=== PATIENT | male | born 1960 | race Caucasian/White ===

== ENCOUNTER 2023-12-21 16:41 | Emergency (ER) | payer MEDICAID, SELFPAY ==
[2023-12-21 16:46] VITALS: BP 139/103; PULSE 83; RESP 20; TEMP 35.6; O2SAT 98; BMI 29.7
--- NOTE | 2023-12-21 16:47 | ED_ITS ---
HPI - General Adult General Chief complaint: Recheck/Abnormal Lab/Rx Stated complaint: Medication check Time Seen by Provider: 12/21/23 17:12 Source: patient and RN notes reviewed Mode of arrival: ambulatory Limitations: no limitations History of Present Illness HPI narrative: This is a [id number]-male, with a hx of CKD stage 3, liver disease, diabetes, HTN, HLD, presenting to the ER with a complaint of medication refill. Patient was incarcerated for 18 years and was released yesterday. He has been on morphine 20 mg twice a day, he states that he was previously being tapered off of this medication however was not discharged with any morphine home. He states that he was told to follow-up with the [facility] however was referred here to be assessed and treated for medication refill. He feels as though he is going into withdrawal, states diffuse body aches. Denies any fevers, chills, chest pain, shortness of breath, abdominal pain, nausea, vomiting or diarrhea. Denies any other complaints or concerns at this time. MD complaint: Medication refill Onset (ago): day(s) Radiation: non-radiation Relieving factors: none Exacerbating factors: none Associated symptoms: denies other symptoms Treatments prior to arrival: none Related Data Previous Rx's Medication Instructions Recorded insulin syringe-needle U-100 1 mL #20 ea 12/21/23 28 gauge x 1/2 (BD Insulin Syringe) morphine 10 mg/5 mL oral solution 20 mg (10 mL) PO BID 7 days #140 mL 12/21/23 Allergies Allergy/AdvReac Type Severity Reaction Status Date / Time acetaminophen [From Tylenol] AdvReac Gastrointestinal Verified 12/21/23 16:53 Upset Review of Systems Review of Systems: Yes all other systems are reviewed and are negative Constitutional: Constitutional: Reports as per [facility] Past Medical History Attestation statement: The following information was validated with the patient. Social History Social History Advance Directives: No Advance Directives Information Provided: No Physical Exam ED Vital Signs: Vital Signs - 24 hr 12/21/23 16:46 12/21/23 17:44 Temperature 96.1 F L 96.1 F L Pulse Rate 83 83 Respiratory Rate 20 20 Blood Pressure 139/103 H 139/103 H Pulse Oximetry 98 98 Oxygen Delivery Method Room Air Room Air BMI result Body Mass Index 29.7 Const General: cooperative, comfortable and no acute distress Orientation/consciousness: patient oriented x3 Limitations: no limitations HENMT Head: Yes normal to inspection, Yes normocephalic and Yes atraumatic Ears: hearing grossly normal bilaterally General nose exam: Normal external nose present Face and sinus: Yes normal facial exam Mouth: Normal oral and palatal mucosa present, oropharynx normal and moist mucous membranes Throat: Yes posterior oropharynx normal Eyes General: appearance normal, both eyes and all related structures Eyelids: Yes eyelids normal Conjunctivae: conjunctivae normal Sclerae: sclerae normal Pupils: Equal, round and reactive pupils present EOM: EOMs intact bilaterally Neck Neck: Yes normal visual inspection, Yes full ROM and Yes no lymphadenopathy Lymphatic: no lymphadenopathy noted Chest Chest palpation & inspection: normal inspection of the chest Resp Effort & Inspection: normal respiratory effort and able to speak in complete sentences Cardio Rate: regular rate Rhythm: regular rhythm Heart sounds: S1 normal heart sound present and S2 normal heart sound present GI Inspection: Yes normal to inspection Skin General skin exam: no rashes or lesions noted Trauma: no lacerations or abrasions Wounds: no wounds Neuro General: patient oriented x3 and moves all extremities Cranial nerves: Yes Equal, round and reactive pupils present Extrem General: Yes normal to inspection Right upper extremity: normal to inspection Left upper extremity: normal to inspection Right lower extremity: normal to inspection Left lower extremity: normal to inspection Medical Decision Making Medical Decision Making MDM Narrative: This is a 63-year-old male presenting to the emergency department her medication refill. He was previously incarcerated and is requesting a medication refill morphine. He is presenting with official documentation revealing that he was previously on morphine 20 mg by mouth twice a day. He has no follow up, pain management, kidney specialist or PCP. I discussed with patient that we cannot refill these medications through the ER but given he is chronically on this, will fill one time week worth of medication. He was give referral to pain management, endrocrinology, primary care, and addiction serviecs. He declines wanting to speak to the addition medical team. He states that he was previously on methadone but sinec switching to morphine this has worked well for him. He states that he has been on it for many years. Pt advised that he cannot have this medication refilled from the ER in the future. He understands and agrees with plan. Stable for d/c. Differential Diagnosis Differential Diagnoses: The differential diagnosis associated with the presentation includes opioid dependency, med refill, anxiety, depression Admission/Observation Consideration of admission/observation: Escalation of care including admission/observation considered Chronic Conditions Patient?s care impacted by: Diabetes Discharge Plan Discharge Clinical Impression: Encounter for medication refill Patient Disposition: Home, Self-Care Instructions: Medicine Refill (ED) Additional Instructions: You were sent here to the emergency room for a medication refill. I am able to refill your medication only for 1 week. You must follow-up with pain management, call tomorrow morning to make an appointment. We can not refill this medication from the emergency room. Follow-up with [facility] for primary care, I am also giving your referral to addiction medicine Services. If any new or worsening symptoms occur including but not limited to chest pain, shortness of breath, please return for re-evaluation. Prescriptions: New morphine 10 mg/5 mL solution 20 mg PO BID 7 Days Qty: 140 0RF Rx Instructions: Partial Fill upon patient request. (DME) insulin syringe-needle U-100 [BD Insulin Syringe] 1 mL 28 gauge x 1/2 syringe See Rx Instructions .Route Qty: 20 0RF Rx Instructions: As directed Referrals: [facility] [Provider Group] [facility] [place]Provider Group] [facility] [Provider Group] [facility] [Physician] - Radha Ambriz CNP [Nurse Practitioner] - Interventions: ED Discharge Assessment Last Done: 12/21/23 17:44 Discharge Date/Time: 12/21/23 17:45
[2023-12-21 17:44] VITALS: BP 139/103; PULSE 83; RESP 20; TEMP 35.6; O2SAT 98
== END 2023-12-21 17:45 | disposition home or self-care (01) ==
PROVIDERS: Emergency Provider Emergency Medicine; PCP Internal Medicine
DX: M79.10 Myalgia, unspecified site (principal); E11.9 Type 2 diabetes mellitus without complications; Z76.0 Encounter for issue of repeat prescription
CPT/HCPCS: 99282

== ENCOUNTER 2023-12-21 18:26 | Emergency (ER) | payer MEDICAID, SELFPAY ==
[2023-12-21 18:56] VITALS: BP 139/83; PULSE 71; RESP 18; TEMP 36.8; O2SAT 98; BMI 34.9
--- NOTE | 2023-12-21 19:27 | ED.GENADULT ---
HPI - General Adult General Chief complaint: General Medical Stated complaint: med check/came back Time Seen by Provider: 12/21/23 19:27 Source: patient and RN notes reviewed Mode of arrival: ambulatory Limitations: no limitations History of Present Illness HPI narrative: 63 y/o M, hx of CKD stage 3, diabetes, and chronic pain on daily morphine (rx'd through prison), presenting to the ER for medication dosage. Pt was seen earlier as he was just d/c from prison without his daily medications. He presents with his paperwork from prison and has been on morphine 20mg BID. 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 This was filled earlier with a one time rx, but he states that when he went to the pharmacy they are unable to fill it as his insurance is not active until tomorrow. He states that his last dose was yesterday and he states that he has severe pain and would like to have his evening dose here if possible. No CP or SOB. No other complaints or concerns at this time. MD complaint: Med dosing Onset (ago): day(s) Relieving factors: none Exacerbating factors: none Associated symptoms: denies other symptoms Treatments prior to arrival: none Related Data Previous Rx's Medication Instructions Recorded insulin syringe-needle U-100 1 mL #20 ea 12/21/23 28 gauge x 1/2 (BD Insulin Syringe) morphine 10 mg/5 mL oral solution 20 mg (10 mL) PO BID 7 days #140 mL 12/21/23 Allergies Allergy/AdvReac Type Severity Reaction Status Date / Time acetaminophen [From Tylenol] AdvReac Gastrointestinal Verified 12/21/23 16:53 Upset Review of Systems Review of Systems: Yes all other systems are reviewed and are negative [facility] Past Medical History Attestation statement: The following information was validated with the patient. Social History Social History Advance Directives: No Advance Directives Information Provided: No Physical Exam ED Vital Signs: Vital Signs - 24 hr 12/21/23 18:56 12/21/23 20:06 Temperature 98.2 F 0 F L Pulse Rate 71 0 L Respiratory Rate 18 0 L Blood Pressure 139/83 00/00 L Pulse Oximetry 98 Oxygen Delivery Method Room Air BMI result Body Mass Index 34.9 Const Other: General: Awake, alert, and oriented X3. No acute distress. HEENT: Normal inspection CVS: Normal heart rate and rhythm. Pulses normal. Respiratory: No respiratory distress Skin: Warm, dry, no rashes noted to exposed skin. Normal skin color. Normal skin turgor. Extremities: Normal to inspection Neuro: Oriented X 3. No motor deficit. No sensory deficit. Medications Administered Discontinued Medications Generic Name Dose Route Start Last Admin Trade Name Shar PRN Reason Stop Dose Admin Morphine Sulfate 20 mg 12/21/23 19:31 12/21/23 19:52 Morphine Sulfate Oral Kim 10 Mg/5 Ml Solution PO 12/21/23 19:32 20 mg ONCE ONE Administration Medical Decision Making Medical Decision Making MDM Narrative: 63 y/o M, hx of dm, CKD stage 3, and chronic pain, presenting to the ER for medication dosing. He is well appearing and alert, and presents with official documetation that he is on morphine. He was given his morphine 20mg dose and advised that we cannot dose him with mophine or refill this medication and he must follow up with pain management. He understands and agrees with plan. Stable for d/c. Differential Diagnosis Differential Diagnoses: The differential diagnosis associated with the presentation includes med refill, opioid dependency, depression, anxiety Lab Data [facility] Lab Attestation statement: I reviewed the patient's lab results. Labs: Lab Results 12/21/23 Range/Units 19:40 POC Glucose 108 (60-115) mg/dL Discharge Plan Discharge Clinical Impression: Encounter for medication refill Patient Disposition: Home, Self-Care Instructions: Medicine Refill (ED) Additional Instructions: Your dose today with morphine as you could not pick this up at the pharmacy. Please use all discharge instructions provided to you earlier today. You must follow-up with pain management, call tomorrow morning to make an appointment. We can not refill this medication from the emergency room. Follow-up with [facility] for primary care, I am also giving your referral to addiction medicine Services. If any new or worsening symptoms occur including but not limited to chest pain, shortness of breath, please return for re-evaluation. Prescriptions: Prescriptions: No Action morphine 10 mg/5 mL solution 20 mg PO BID 7 Days Qty: 140 0RF Rx Instructions: Partial Fill upon patient request. (DME) insulin syringe-needle U-100 [BD Insulin Syringe] 1 mL 28 gauge x 1/2 syringe See Rx Instructions .Route Qty: 20 0RF Rx Instructions: As directed Referrals: [facility] [Provider Group] [facility] [Provider Group] [facility] [Provider Group] [facility] [Physician] - Radha Ambriz CNP [Nurse Practitioner] - Interventions: ED Discharge Assessment Last Done: 12/21/23 20:06 Discharge Date/Time: 12/21/23 20:06
[2023-12-21 19:43] LABS: Glucose, Whole Blood 108 mg/dL (60-115)
[2023-12-21] MEDS: Morphine Sulfate Oral Sol 10 MG/5 ML SOLUTION 20 MG PO (19:52)
[2023-12-21 20:06] VITALS: BP 00/00; PULSE 0; RESP 0; TEMP -17.7; TEMP 0
== END 2023-12-21 20:06 | disposition home or self-care (01) ==
PROVIDERS: Emergency Provider Internal Medicine; PCP Internal Medicine
DX: E11.22 Type 2 diabetes mellitus with diabetic chronic kidney disease (principal); G89.29 Other chronic pain; N18.30 Chronic kidney disease, stage 3 unspecified; Z76.0 Encounter for issue of repeat prescription; Z79.4 Long term (current) use of insulin
CPT/HCPCS: 82947; 99283

== ENCOUNTER 2023-12-28 15:51 | Emergency (ER) | payer MEDICAID, SELFPAY ==
[2023-12-28 16:24] VITALS: BP 146/73; PULSE 88; RESP 16; TEMP 36.6; O2SAT 100; BMI 34.3
--- NOTE | 2023-12-28 16:33 | ED_ITS ---
HPI - General Adult General Chief complaint: General Medical Stated complaint: medication refill Time Seen by Provider: 12/28/23 16:30 Source: patient Mode of arrival: ambulatory Limitations: no limitations History of Present Illness HPI narrative: 63 yold male with pmh of DM and Chronic pain who is on morphine and needs a morphine med refill. Patient released from long term and has no PCP. patient needs his morphine meds for chornic pain. patient has follow up with his first PCP on January 18. Patient finished his recent morphine prescription couple of days ago. Related Data Previous Rx's Medication Instructions Recorded insulin syringe-needle U-100 1 mL #20 ea 12/21/23 28 gauge x 1/2 (BD Insulin Syringe) morphine 10 mg/5 mL oral solution 20 mg (10 mL) PO BID 7 days #140 mL 12/21/23 morphine 15 mg immediate release 15 mg PO BID PRN pain 5 days #10 12/28/23 tablet tabs Allergies Allergy/AdvReac Type Severity Reaction Status Date / Time acetaminophen [From Tylenol] AdvReac Gastrointestinal Verified 12/21/23 16:53 Upset Review of Systems 2 Review of Systems: medication refil Yes all other systems are reviewed and are negative [facility] Social History Social History Advance Directives: No Advance Directives Information Provided: No Physical Exam ED Vital Signs: Vital Signs - 24 hr 12/28/23 16:24 Temperature 97.9 F Pulse Rate 88 Respiratory Rate 16 Blood Pressure 146/73 H Pulse Oximetry 100 Oxygen Delivery Method Room Air BMI result Body Mass Index 34.3 Const General: cooperative, healthy appearing, comfortable, no acute distress, well developed, alert and awake Orientation/consciousness: oriented to person, oriented to place, oriented to time and patient oriented x3 HENMT Head: Yes normal to inspection, Yes No palpable skull fracture present, Yes normocephalic and Yes atraumatic Eyes General: appearance normal, both eyes and all related structures Neck Neck: Yes normal visual inspection, Yes full ROM, Yes no lymphadenopathy, Yes no meningeal signs, Yes trachea midline, Yes supple, No anterior neck swelling and No tender Chest Chest palpation & inspection: normal inspection of the chest and normal palpation of entire chest wall Resp Effort & Inspection: normal respiratory effort and able to speak in complete sentences Auscultation: clear to auscultation bilaterally Cardio Jugular venous distension: no JVD Heart sounds: S1 normal heart sound present and S2 normal heart sound present GI Inspection: Yes normal to inspection Palpation (GI): Soft to palpation, not firm, nontender, no guarding and not rigid General: Yes no CVA tenderness Back/Spine/Pelvis Back: no CVA tenderness and No back tenderness Skin General skin exam: no rashes or lesions noted, elasticity normal and turgor normal Neuro General: oriented to person, oriented to place, oriented to time, patient oriented x3, gait normal, tone normal, moves all extremities, Normal light touch and pain sensation, no meningeal signs, no focal motor deficits and CN's II-XI intact bilaterally Extrem General: Yes normal to inspection, Yes full ROM and Yes capillary refill normal Psych Appearance: grossly normal, well kempt and not disheveled Course Course Course Narrative: RME: 63-year-old male presents ED for medication refill of morphine. Patient is on morphine for chronic pain. Patient has next appointment January 18 and is on morphine ran out and does not want to go start using street drugs. Patient informed he will be given short course of morphine and then call clinic for earlier appointment. Patient informed to call pain managment. for managment of pain and morphine. Medical Decision Making Medical Decision Making MDM Narrative: 63 yold male with DM and chronic pain requesting morphine meds refill. Patient needs meds until january 18. Patient informed to follow up with PCP and call them for earlier appointment. Also informed to follow up [facility] pain clinic. Patient explained worrisome signs and informed to return to the ED if he has them. Patient given short course of morphine. Differential Diagnosis Differential Diagnoses: The differential diagnosis associated with the presentation includes (medication refill) Admission/Observation Consideration of admission/observation: Escalation of care including ad mission/observation considered Independent Historian Clinical information obtained from an independent historian. History obtained from or confirmed by: Other (patient. ) External Record Review External record reviewed: Other (prior visits) Prescription Management I considered prescription management with: Pain Medication Discharge Plan Discharge Clinical Impression: Encounter for medication refill Patient Disposition: Home, Self-Care Instructions: Medicine Refill (ED) Additional Instructions: Recommend follow-up with primary care provider. Call clinic for earlier appointment. Also recommend calling pain management. Return to the ED for any physical complaints, depression, suicidal/homicidal ideation, or any other concerning symptoms. Prescriptions: New morphine 15 mg tablet 15 mg PO BID PRN (Reason: pain) 5 Days Qty: 10 0RF Rx Instructions: Partial Fill upon patient request. No Action morphine 10 mg/5 mL solution 20 mg PO BID 7 Days Qty: 140 0RF Rx Instructions: Partial Fill upon patient request. (DME) insulin syringe-needle U-100 [BD Insulin Syringe] 1 mL 28 gauge x 1/2 syringe See Rx Instructions .Route Qty: 20 0RF Rx Instructions: As directed Discharge Date/Time: 12/28/23 16:52 Print Language: Pashto
--- NOTE | 2023-12-28 16:50 | PC.NURSE ---
pt was discharged from triage provider
== END 2023-12-28 16:52 | disposition home or self-care (01) ==
PROVIDERS: Emergency Provider Emergency Medicine Emergency Medical Services; PCP Internal Medicine
DX: Z76.0 Encounter for issue of repeat prescription (principal)
CPT/HCPCS: 99281; 99282

== ENCOUNTER 2024-01-01 02:22 | Emergency (ER) | payer OTHER, SELFPAY ==
--- NOTE | ~2024-01-01 | XR_ITS ---
EXAMINATION: XR ANKLE, RIGHT CLINICAL INFORMATION: Pain COMPARISON: None available. TECHNIQUE: AP, lateral, and mortise views of the right ankle. FINDINGS: Osseous alignment is anatomic. No acute fracture is seen. Mild degenerative changes are noted in the midfoot. There is soft tissue swelling at the ankle which is most prominent laterally. Vascular calcifications are noted. XR/XR ankle RT min 3V IMPRESSION: No acute osseous findings. Soft tissue swelling at the ankle.
[2024-01-01 02:27] VITALS: BP 165/83; PULSE 84; RESP 16; TEMP 37.1; O2SAT 84; BMI 34.5
[2024-01-01 03:44] VITALS: BP 139/79; PULSE 77; RESP 14; O2SAT 93
--- NOTE | 2024-01-01 03:48 | PC.NURSE ---
Pt aox4 resting at the bedside. VSS. No apparent distress noted. Reports generalized body pain and chronic pain, 07/13. Reports taking pain medication for several years and running out of meds. Pt also reports twisting the right ankle on the sidewalk. Right ankle swelling noted. X-ray order placed. Pending physician eval.
--- NOTE | 2024-01-01 04:43 | ED.GENADULT ---
HPI - General Adult General Chief complaint: General Medical Stated complaint: RX refill Time Seen by Provider: 01/01/24 03:58 Source: patient Mode of arrival: ambulatory Limitations: no limitations History of Present Illness HPI narrative: Patient comes to the emergency room requesting refill for morphine 50 mg b.i.d.. Patient was recently discharged from long-term and he was not given his medications back. Patient has an appointment pending on January [address] Womack. Patient has been coming every 5 days to the emergency room for a refill. Related Data Previous Rx's Medication Instructions Recorded morphine 15 mg tablet,extended 15 mg PO Q12H #10 tabs 01/01/24 release Allergies Allergy/AdvReac Type Severity Reaction Status Date / Time acetaminophen [From Tylenol] AdvReac Nausea Verified 01/01/24 02:38 Review of Systems Review of Systems: Constitutional : No Weight loss, No Fever, No Chills, No Night Sweats, No Fatigue, No Malaise ENT/Mouth : No Hearing loss, No Ear Pain, No Nasal Congestion, No Sinus Pain, No Hoarseness, No sore throat, No Rhinorrhea, No Swallowing Difficulty Eyes: No Eye Pain, No Swelling, No Redness, No Foreign Body, No Discharge, No Vision Changes Cardiovascular : No Chest Pain, No SOB, No Dyspnea on Exertion, No Orthopnea, No Edema, No Palpitations Respiratory : No Cough, No Sputum, No Wheezing, No Smoke Exposure, No Dyspnea Gastrointestinal : No Nausea, No Vomiting, No Diarrhea, No Constipation, No abdominal Pain, No Hematochezia, No Melena Genitourinary : no irregular bleeding, No Dysuria, No Urinary Frequency, No Hematuria, No Urinary Incontinence, No Urgency, No Flank Pain, No Urinary Flow Changes, No Hesitancy Musculoskeletal : Complaining of right ankle pain, No Myalgias, No Joint Swelling Skin : No Skin Lesions, No rash Neuro : No Weakness, No Numbness, No Paresthesias, No Loss of Consciousness, No Dizziness, No Headache Psych : No Anxiety/Panic, No Depression, No SI/HI/AH/VH, No Social Issues, Heme/Lymph: No Bruising, No Bleeding,No Lymphadenopathy Endocrine : No Polyuria, No Polydipsia, No Temperature Intolerance PMF Past Medical History Medical History (Updated 01/01/24 @ 04:49 by Paulina Girard MD) Chronic pain Social History Social History Smoked in Last 30 Days: No Use of substances other than those prescribed or required for medical reasons: No Advance Directives: No Advance Directives Information Provided: Yes Physical Exam ED Vital Signs: Vital Signs - 24 hr 01/01/24 02:27 01/01/24 03:44 Temperature 98.7 F Pulse Rate 84 77 Respiratory Rate 16 14 Blood Pressure 165/83 H 139/79 Pulse Oximetry 84 L 93 Oxygen Delivery Method Room Air Room Air BMI result Body Mass Index 34.5 Const Other: Appearance: Alert. Oriented X3. No acute distress. Eyes: Pupils equal, round and reactive to light. ENT: Pharynx normal. Neck: Normal inspection. Neck supple. No lymph nodes noted. No crepitus CVS: Normal heart rate and rhythm. Pulses normal. Normal S1 and S2 Respiratory: No respiratory distress. Breath sounds normal. No Wheezing. No rales Abdomen: Soft and nontender. No rigidity. No distention. Skin: Skin warm and dry. Normal skin color. Normal skin turgor. Extremities: No lower extremity edema. No Lacerations. No Rash Neuro: Oriented X 3. No motor deficit. No sensory deficit. Moving all extremities. No slurred speech. CN 2 through 12 grossly intact Psych: calm, cooperative, normal affect Medical Decision Making Medical Decision Making MDM Narrative: -a check patient's Mass pad. So far, seems that patient is using his medication appropriately. -of note, patient was registered under the correct name but it was misspelled today by registration. The patient's charts will be merged later today -reviewing patient's chart, seems that patient did present the 1st time here to the ED in triage with documentation from the long-term stating that he was in fact taking morphine 15 mg b.i.d. -I will go ahead and give a small prescription to the patient. Radiology Impression Discussion of test interpretation with radiology: I have reviewed the radiologist's reading. Radiologist Impression: Osseous alignment is anatomic. No acute fracture is seen. Mild degenerative changes are noted in the midfoot. There is soft tissue swelling at the ankle which is most prominent laterally. Vascular calcifications are noted. XR/XR ankle RT min 3V IMPRESSION: No acute osseous findings. Soft tissue swelling at the ankle. Discharge Plan Discharge Clinical Impression: Prescription refill Patient Disposition: Home, Self-Care Instructions: Medicine Refill (ED) Additional Instructions: Please follow-up with your primary care physician tomorrow. If you have any worsening or new symptoms, please return to the emergency room or call 911 Prescriptions: New morphine 15 mg tablet extended release 15 mg PO Q12H Qty: 10 0RF Rx Instructions: Partial Fill upon patient request.
--- NOTE | 2024-01-01 04:48 | PC.NURSE ---
this rn assumed care of pt, pt resting in stretcher, no acute distress noted. plan of care continues.
[2024-01-01 05:36] VITALS: BP 150/84; PULSE 73; RESP 16; TEMP 36.7; O2SAT 96
== END 2024-01-01 05:37 | disposition home or self-care (01) ==
PROVIDERS: Emergency Provider Emergency Medicine; PCP Internal Medicine
DX: Z76.0 Encounter for issue of repeat prescription (principal); M25.471 Effusion, right ankle
CPT/HCPCS: 73610; 99283; 99284

== ENCOUNTER 2024-01-04 16:14 | Emergency (ER) | payer OTHER, SELFPAY ==
[2024-01-04 17:12] VITALS: BP 153/80; PULSE 76; RESP 18; TEMP 36.6; O2SAT 96; BMI 35.3
--- NOTE | 2024-01-04 17:15 | ED_ITS ---
HPI - General Adult General Chief complaint: General Medical Stated complaint: Med check Time Seen by Provider: 01/04/24 17:15 Source: patient Mode of arrival: ambulatory Limitations: no limitations History of Present Illness HPI narrative: 63 y/o male with history of DM2, chronic pain on chronic opiates for the last several years who presents to the ER for Morphine refill. He was incarcerated for the last 18 years and just got out 12/20/23. He was discharged with diabetes meds for 1 month but he was not given any morphine. he has been coming here for refills. No other drug use. He has an appointment with a provider on 01/18. MD complaint: morphine refill Related Data Previous Rx's Medication Instructions Recorded insulin syringe-needle U-100 1 mL #20 ea 12/21/23 28 gauge x 1/2 (BD Insulin Syringe) morphine 10 mg/5 mL oral solution 20 mg (10 mL) PO BID 7 days #140 mL 12/21/23 morphine 15 mg immediate release 15 mg PO BID PRN pain 5 days #10 12/28/23 tablet tabs morphine 15 mg tablet,extended 15 mg PO Q12H #10 tabs 01/01/24 release morphine 15 mg tablet,extended 15 mg PO Q12H #14 tabs 01/04/24 release Allergies Allergy/AdvReac Type Severity Reaction Status Date / Time acetaminophen [From Tylenol] AdvReac Gastrointestinal Verified 01/04/24 17:15 Upset Review of Systems Review of Systems: Yes all other systems are reviewed and are negative [facility] Past Medical History Medical History (Updated 01/04/24 @ 17:16 by GEORGE Diaz) Chronic pain Social History Social History (System 01/03/24 @ 11:15 by Laverne Banks) Advance Directives: No Advance Directives Information Provided: No Physical Exam ED Vital Signs: Vital Signs - 24 hr 01/04/24 17:12 01/04/24 17:27 Temperature 97.9 F 97.9 F Pulse Rate 76 76 Respiratory Rate 18 18 Blood Pressure 153/80 H 153/80 H Pulse Oximetry 96 96 Oxygen Delivery Method Room Air Room Air BMI result Body Mass Index 35.3 Appearance: Alert. Oriented X3. No acute distress. HEENT: normal inspection CVS: Normal heart rate and rhythm. Pulses normal. Respiratory: No respiratory distress. Skin: Skin warm and dry. Normal skin color. Normal skin turgor. No rashes. Extremities: Normal inspection x4 Neuro: Oriented X 3. Grossly normal, nonfocal, steady gait Medical Decision Making Medical Decision Making MDM Narrative: 63 yo male with history of chronic pain on chronic morphine presents to the ER for morphine refill. has been seen here several times for a few days worth of morphine He has outpatient follow-up but not for another couple of weeks. [employer] reviewed. low suspicion for abuse as this is a chronic medication for him will send 1 week worth of morphine for now stable for discharge Differential Diagnosis Differential Diagnoses: The differential diagnosis associated with the presentation includes opioid use disorder, chronic pain syndrome, polysubstance abuse External Record Review External record reviewed: Outpatient record Prescription Management I considered prescription management with: Pain Medication Chronic Conditions Patient?s care impacted by: Other (Chronic pain syndrome) Social Determinants Patient?s care significantly limited by Social Determinants of Health including: Problems related to primary support group and Other Social Determinant of Health Critical Care Time Critical Care Time Critical Care Time: No Discharge Plan Discharge Clinical Impression: Chronic pain syndrome Patient Disposition: Home, Self-Care Instructions: Chronic Pain (ED) Additional Instructions: Take the prescribed morphine as directed. Follow-up with your doctor as scheduled on the If you develop new or worsening symptoms call 911 or come back to the ER for further evaluation. Prescriptions: New morphine 15 mg tablet extended release 15 mg PO Q12H Qty: 14 0RF Rx Instructions: Partial Fill upon patient request. No Action morphine 15 mg tablet 15 mg PO BID PRN (Reason: pain) 5 Days Qty: 10 0RF Rx Instructions: Partial Fill upon patient request. morphine 15 mg tablet extended release 15 mg PO Q12H Qty: 10 0RF Rx Instructions: Partial Fill upon patient request. morphine 10 mg/5 mL solution 20 mg PO BID 7 Days Qty: 140 0RF Rx Instructions: Partial Fill upon patient request. (DME) insulin syringe-needle U-100 [BD Insulin Syringe] 1 mL 28 gauge x 1/2 syringe See Rx Instructions .Route Qty: 20 0RF Rx Instructions: As directed Interventions: ED Discharge Assessment Last Done: 01/04/24 17:27 Discharge Date/Time: 01/04/24 17:28
[2024-01-04 17:27] VITALS: BP 153/80; PULSE 76; RESP 18; TEMP 36.6; O2SAT 96
== END 2024-01-04 17:28 | disposition home or self-care (01) ==
PROVIDERS: Emergency Provider Emergency Medicine Emergency Medical Services; PCP Internal Medicine
DX: Z76.0 Encounter for issue of repeat prescription (principal); G89.29 Other chronic pain; E11.9 Type 2 diabetes mellitus without complications; Z79.4 Long term (current) use of insulin
CPT/HCPCS: 99282; 99283

== ENCOUNTER 2024-01-08 10:49 | Emergency (ER) | payer OTHER, SELFPAY ==
[2024-01-08 10:54] VITALS: BP 126/73; PULSE 79; RESP 20; TEMP 36.2; O2SAT 98; BMI 34.8
--- NOTE | 2024-01-08 11:55 | ED.GENADULT ---
HPI - General Adult General Chief complaint: General Medical Stated complaint: Med refill Time Seen by Provider: 01/08/24 12:00 Source: patient Mode of arrival: ambulatory Limitations: no limitations History of Present Illness HPI narrative: 63 y/o male with history of DM2, chronic pain on chronic opiates for the last several years who presents to the ER for Trulicity and Torsemide refills. Has been on the same doses for a long time. Has PCP appointment 01/18. Has been seen here several times for Morphine refills until he can get to his PCP. No chest pain, SOB, LE swelling. Glucose 130s at home. complaint: med refill Relieving factors: none Exacerbating factors: none Associated symptoms: denies other symptoms Treatments prior to arrival: none Related Data Previous Rx's ?Medication ?Instructions ?Recorded insulin syringe-needle U-100 1 mL #20 ea 12/21/23 28 gauge x 1/2 (BD Insulin Syringe) morphine 10 mg/5 mL oral solution 20 mg (10 mL) PO BID 7 days #140 mL 12/21/23 morphine 15 mg immediate release 15 mg PO BID PRN pain 5 days #10 12/28/23 tablet tabs morphine 15 mg tablet,extended 15 mg PO Q12H #10 tabs 01/01/24 release morphine 15 mg tablet,extended 15 mg PO Q12H #14 tabs 01/04/24 release dulaglutide 0.75 mg/0.5 mL 0.75 mg (0.5 mL) subcut QWEEK #1 mL 01/08/24 subcutaneous pen injector (Trulicity) torsemide 20 mg tablet 40 mg (2 x 20 mg) PO DAILY #30 tabs 01/08/24 Allergies Allergy/AdvReac Type Severity Reaction Status Date / Time acetaminophen [From Tylenol] AdvReac Gastrointestinal Verified 01/08/24 10:56 Upset Review of Systems Review of Systems: Yes all other systems are reviewed and are negative [facility] Past Medical History Medical History (Updated 01/08/24 @ 11:58 by GEORGE Diaz) Chronic pain Social History Social History (System 01/03/24 @ 11:15 by Laverne Banks) Advance Directives: No Advance Directives Information Provided: No Physical Exam ED Vital Signs: Vital Signs - 24 hr 01/08/24 10:54 Temperature 97.1 F Pulse Rate 79 Respiratory Rate 20 Blood Pressure 126/73 Pulse Oximetry 98 Oxygen Delivery Method Room Air BMI result Body Mass Index 34.8 Appearance: Alert. Oriented X3. No acute distress. HEENT: normal inspection CVS: Normal heart rate and rhythm. Pulses normal. Respiratory: No respiratory distress. Skin: Skin warm and dry. Normal skin color. Normal skin turgor. No rashes. Extremities: normal x4, no joint swelling Neuro: Oriented X 3. Nonfocal Course Course Course Narrative: 63 year old male with history of diabetes requesting refill torsemide and trulicity. Medical Decision Making Medical Decision Making MDM Narrative: 63 y/o male with history of DM2, chronic pain on chronic opiates for the last several years who presents to the ER for med refill. VSS. Patient counseled on med refills and need for outpatient follow up Differential Diagnosis Differential Diagnoses: The differential diagnosis associated with the presentation includes med refill, med seeking, med noncompliance, no evidence of acute CHF exacerbation or volume overload External Record Review External record reviewed: Outpatient record and Prior outpatient labs Prescription Management I considered prescription management with: Pain Medication Chronic Conditions Patient?s care impacted by: Diabetes Critical Care Time Critical Care Time Critical Care Time: No Discharge Plan Discharge Clinical Impression: Diabetes Patient Disposition: Home, Self-Care Instructions: Type 2 Diabetes in the Older Adult (ED) Additional Instructions: take your medications as prescribed follow up with PCP as scheduled on 01/18 Prescriptions: New torsemide 20 mg tablet 40 mg PO DAILY Qty: 30 0RF Trulicity 0.75 mg/0.5 mL pen injector 0.75 mg subcut QWEEK Qty: 1 0RF No Action morphine 15 mg tablet 15 mg PO BID PRN (Reason: pain) 5 Days Qty: 10 0RF Rx Instructions: Partial Fill upon patient request. morphine 15 mg tablet extended release 15 mg PO Q12H Qty: 10 0RF Rx Instructions: Partial Fill upon patient request. morphine 10 mg/5 mL solution 20 mg PO BID 7 Days Qty: 140 0RF Rx Instructions: Partial Fill upon patient request. (DME) insulin syringe-needle U-100 [BD Insulin Syringe] 1 mL 28 gauge x 1/2 syringe See Rx Instructions .Route Qty: 20 0RF Rx Instructions: As directed morphine 15 mg tablet extended release 15 mg PO Q12H Qty: 14 0RF Rx Instructions: Partial Fill upon patient request. Print Language: Belarusian
[2024-01-08 12:13] VITALS: BP 130/73; PULSE 78; RESP 20; TEMP 36.3; O2SAT 95
== END 2024-01-08 12:14 | disposition home or self-care (01) ==
LOC: HO.ED 12:00
PROVIDERS: Emergency Provider Student in an Organized Health Care Education/Training Program
DX: Z76.0 Encounter for issue of repeat prescription (principal); E11.9 Type 2 diabetes mellitus without complications; Z79.899 Other long term (current) drug therapy
CPT/HCPCS: 99282

== ENCOUNTER 2024-01-10 15:55 | Emergency (ER) | payer OTHER, SELFPAY ==
[2024-01-10 16:30] VITALS: BP 121/73; PULSE 70; RESP 20; TEMP 36.1; O2SAT 96; BMI 34.5
--- NOTE | 2024-01-10 16:35 | ED_ITS ---
HPI - General Adult General Chief complaint: Recheck/Abnormal Lab/Rx Stated complaint: med refill Time Seen by Provider: 01/10/24 16:34 Source: patient Mode of arrival: ambulatory Limitations: no limitations History of Present Illness HPI narrative: 63 yold male with pmh of chronic pain presents to the ED for morphine pills. Patient will have first meeting with PCP on 01/18. 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 Patient has been on morphine for 4 years while in skilled nursing. Patient ran out of his morphine pills. Patient states no physical complaints. Related Data Previous Rx's ?Medication ?Instructions ?Recorded insulin syringe-needle U-100 1 mL #20 ea 12/21/23 28 gauge x 1/2 (BD Insulin Syringe) morphine 10 mg/5 mL oral solution 20 mg (10 mL) PO BID 7 days #140 mL 12/21/23 morphine 15 mg immediate release 15 mg PO BID PRN pain 5 days #10 12/28/23 tablet tabs morphine 15 mg tablet,extended 15 mg PO Q12H #10 tabs 01/01/24 release morphine 15 mg tablet,extended 15 mg PO Q12H #14 tabs 01/04/24 release dulaglutide 0.75 mg/0.5 mL 0.75 mg (0.5 mL) subcut QWEEK #1 mL 01/08/24 subcutaneous pen injector (Trulicity) torsemide 20 mg tablet 40 mg (2 x 20 mg) PO DAILY #30 tabs 01/08/24 morphine 15 mg tablet,extended 15 mg PO Q12H 5 days #10 tabs 01/10/24 release Allergies Allergy/AdvReac Type Severity Reaction Status Date / Time acetaminophen [From Tylenol] AdvReac Mild Gastrointestinal Verified 01/10/24 16:32 Upset Review of Systems Review of Systems: medication refill Yes all other systems are reviewed and are negative [facility] Past Medical History Medical History (Updated 01/11/24 @ 00:01 by Heike Gutierrez) Chronic pain Social History Social History (System 01/03/24 @ 11:15 by Laverne Banks) Advance Directives: No Advance Directives Information Provided: No Physical Exam ED Vital Signs: Vital Signs - 24 hr 01/10/24 16:30 Temperature 97 F Pulse Rate 70 Respiratory Rate 20 Blood Pressure 121/73 Pulse Oximetry 96 Oxygen Delivery Method Room Air BMI result Body Mass Index 34.5 Const General: cooperative, healthy appearing, comfortable, no acute distress, well developed, alert, awake and Physically active Orientation/consciousness: patient oriented x3 HENMT Head: Yes normal to inspection, Yes No palpable skull fracture present, Yes normocephalic, Yes atraumatic and No abrasion Eyes General: appearance normal, both eyes and all related structures Neck Neck: Yes normal visual inspection, Yes full ROM, Yes no lymphadenopathy, Yes no meningeal signs, Yes trachea midline, Yes supple, No anterior neck swelling and No tender Chest Chest palpation & inspection: normal inspection of the chest and normal palpation of entire chest wall Resp Effort & Inspection: normal respiratory effort and able to speak in complete sentences Auscultation: clear to auscultation bilaterally Cardio Jugular venous distension: no JVD Heart sounds: S1 normal heart sound present and S2 normal heart sound present GI Inspection: Yes normal to inspection and No abdominal wall ecchymosis Palpation (GI): Soft to palpation, not firm, nontender, no guarding and not rigid General: Yes no CVA tenderness Back/Spine/Pelvis Back: no CVA tenderness and No back tenderness Skin General skin exam: no rashes or lesions noted, elasticity normal and turgor normal Neuro General: patient oriented x3, gait normal, tone normal, moves all extremities, Normal light touch and pain sensation, no meningeal signs, no focal motor deficits and CN's II-XI intact bilaterally Extrem General: Yes normal to inspection, Yes full ROM and Yes capillary refill normal Psych Appearance: grossly normal, well kempt and not disheveled Medical Decision Making Medical Decision Making MDM Narrative: 63 yold male presents to the ED for medication refill of morphine 15mg po q12 for chronic pain. patient has appointment on January 18. Patient informed once he has his appointment with primary care on the that plan she will be placed for patient to receive his prescriptions from his primary care provider and not from the ED. patient agreeable to plan. Patient denies any complaint. Patient states worrisome signs and informed to return to the ED for has a. Differential Diagnosis Differential Diagnoses: The differential diagnosis associated with the presentation includes (medication refill) Admission/Observation Consideration of admission/observation: Escalation of care including admission/observation considered Independent Historian Clinical information obtained from an independent historian. History obtained from or confirmed by: Other patient External Record Review External record reviewed: Other (prior visits) Prescription Management I considered prescription management with: Pain Medication Discharge Plan Discharge Clinical Impression: Encounter for medication refill Patient Disposition: Home, Self-Care Instructions: Medicine Refill (ED) Additional Instructions: Recommend follow-up with your primary care provider keep your appointment. Call the clinic to see if we have an earlier appointment. Return to the ED for any concerning symptoms. Prescriptions: New morphine 15 mg tablet extended release 15 mg PO Q12H 5 Days Qty: 10 0RF Rx Instructions: Partial Fill upon patient request. No Action morphine 15 mg tablet 15 mg PO BID PRN (Reason: pain) 5 Days Qty: 10 0RF Rx Instructions: Partial Fill upon patient request. morphine 15 mg tablet extended release 15 mg PO Q12H Qty: 10 0RF Rx Instructions: Partial Fill upon patient request. morphine 10 mg/5 mL solution 20 mg PO BID 7 Days Qty: 140 0RF Rx Instructions: Partial Fill upon patient request. (DME) insulin syringe-needle U-100 [BD Insulin Syringe] 1 mL 28 gauge x 1/2 syringe See Rx Instructions .Route Qty: 20 0RF Rx Instructions: As directed morphine 15 mg tablet extended release 15 mg PO Q12H Qty: 14 0RF Rx Instructions: Partial Fill upon patient request. torsemide 20 mg tablet 40 mg PO DAILY Qty: 30 0RF Trulicity 0.75 mg/0.5 mL pen injector 0.75 mg subcut QWEEK Qty: 1 0RF Interventions: ED Discharge Assessment Last Done: 01/10/24 16:50 Discharge Date/Time: 01/10/24 16:51 Print Language: Namibian
[2024-01-10 16:50] VITALS: BP 121/73; PULSE 70; RESP 20; TEMP 36.1; O2SAT 97
== END 2024-01-10 16:51 | disposition home or self-care (01) ==
PROVIDERS: Emergency Provider Emergency Medicine
DX: Z76.0 Encounter for issue of repeat prescription (principal); G89.29 Other chronic pain
CPT/HCPCS: 99282; 99283

== ENCOUNTER 2024-01-14 23:52 | Emergency (ER) | payer OTHER, SELFPAY ==
[2024-01-15 00:01] VITALS: BP 103/61; PULSE 75; RESP 18; TEMP 36.9; O2SAT 96; BMI 34.5
--- NOTE | 2024-01-15 00:42 | ED_ITS ---
HPI - General Adult General Chief complaint: General Medical Stated complaint: Medication Refill Time Seen by Provider: 01/15/24 00:38 Source: patient and old records reviewed Mode of arrival: ambulatory Limitations: no limitations History of Present Illness HPI narrative: 63 yo male with chronic pain on morphine who has been getting his morphine RX here scheduled since release from senior living after serving 18 years. He has appointment at [address] on 01/18 he is here asking for morphine Rx he is due according to [employer] and is also asking for his atorvastatin and trazodone. Last refill in ED given he will have PCP now. complaint: med refill Onset (ago): day(s) (1) Radiation: non-radiation Severity: mild Relieving factors: none Exacerbating factors: none Associated symptoms: denies other symptoms Treatments prior to arrival: none Related Data Previous Rx's ?Medication ?Instructions ?Recorded insulin syringe-needle U-100 1 mL #20 ea 12/21/23 28 gauge x 1/2 (BD Insulin Syringe) morphine 10 mg/5 mL oral solution 20 mg (10 mL) PO BID 7 days #140 mL 12/21/23 morphine 15 mg immediate release 15 mg PO BID PRN pain 5 days #10 12/28/23 tablet tabs morphine 15 mg tablet,extended 15 mg PO Q12H #10 tabs 01/01/24 release morphine 15 mg tablet,extended 15 mg PO Q12H #14 tabs 01/04/24 release dulaglutide 0.75 mg/0.5 mL 0.75 mg (0.5 mL) subcut QWEEK #1 mL 01/08/24 subcutaneous pen injector (Trulicity) torsemide 20 mg tablet 40 mg (2 x 20 mg) PO DAILY #30 tabs 01/08/24 morphine 15 mg tablet,extended 15 mg PO Q12H 5 days #10 tabs 01/10/24 release atorvastatin 40 mg tablet 40 mg PO DAILY #30 tabs 01/15/24 morphine 15 mg tablet,extended 15 mg PO Q12H #10 tabs 01/15/24 release trazodone 50 mg tablet 50 mg PO BEDTIME #7 tabs 01/15/24 Allergies Allergy/AdvReac Type Severity Reaction Status Date / Time acetaminophen [From Tylenol] AdvReac Mild Gastrointestinal Verified 01/15/24 00:07 Upset Review of Systems Review of Systems: Constitutional : No Fever, No Chills, No Fatigue ENT/Mouth : No sore throat, No Rhinorrhea Eyes: No Eye Pain, No Swelling, No Redness Cardiovascular : No Chest Pain, No SOB, No Dyspnea on Exertion Respiratory : No Cough, No Sputum Gastrointestinal : No Nausea, No Vomiting, No Diarrhea, No abdominal Pain Genitourinary : No Dysuria, No Urinary Frequency, No Hematuria, Musculoskeletal : No joint pain, No Myalgias, No Joint Swelling Skin : No Skin Lesions, No rash Neuro : No Weakness, No Numbness, No Dizziness, no Headache All other systems reviewed and are negative [facility] Past Medical History Attestation statement: The following information was validated with the patient. Source: old records reviewed Medical History Chronic pain Social History Social History Advance Directives: No Advance Directives Information Provided: Yes Advance Directives on File: No Physical Exam ED Vital Signs: Vital Signs - 24 hr 01/15/24 00:01 Temperature 98.4 F Pulse Rate 75 Respiratory Rate 18 Blood Pressure 103/61 Pulse Oximetry 96 Oxygen Delivery Method Room Air BMI result Body Mass Index 34.5 Appearance: Alert. Oriented X3. No acute distress. Eyes: Pupils equal, round and reactive to light. ENT: Pharynx normal. Neck: Normal inspection. Neck supple. CVS: Normal heart rate and rhythm. Pulses normal. Respiratory: No respiratory distress. Breath sounds normal. Abdomen: Soft and nontender. Skin: Skin warm and dry. Normal skin color. Normal skin turgor. Extremities: No lower extremity edema. No calf ttp Neuro: Oriented X 3. No motor deficit. No sensory deficit. Medical Decision Making Medical Decision Making MDM Narrative: 63 yo male here with med refill request has no other complaints or concerns [employer] appears appropriate and he has only been coming here for his Rx will refill one last time prior to PCP appointment 01/18 he is aware stable for DC Differential Diagnosis Differential Diagnoses: The differential diagnosis associated with the presentation includes med refill, chronic pain External Record Review External record reviewed: Inpatient record Prescription Management I considered prescription management with: Pain Medication and Other Discharge Plan Discharge Clinical Impression: Medication refill, Chronic pain Patient Disposition: Home, Self-Care Instructions: Chronic Pain (ED), Medicine Refill (ED) Additional Instructions: please follow up with your new doctor for further medication refills return for any worsening symptoms or concerns Prescriptions: New morphine 15 mg tablet extended release 15 mg PO Q12H Qty: 10 0RF Rx Instructions: Partial Fill upon patient request. trazodone 50 mg tablet 50 mg PO BEDTIME Qty: 7 0RF atorvastatin 40 mg tablet 40 mg PO DAILY Qty: 30 0RF No Action morphine 15 mg tablet 15 mg PO BID PRN (Reason: pain) 5 Days Qty: 10 0RF Rx Instructions: Partial Fill upon patient request. morphine 15 mg tablet extended release 15 mg PO Q12H Qty: 10 0RF Rx Instructions: Partial Fill upon patient request. morphine 15 mg tablet extended release 15 mg PO Q12H 5 Days Qty: 10 0RF Rx Instructions: Partial Fill upon patient request. morphine 10 mg/5 mL solution 20 mg PO BID 7 Days Qty: 140 0RF Rx Instructions: Partial Fill upon patient request. (DME) insulin syringe-needle U-100 [BD Insulin Syringe] 1 mL 28 gauge x 1/2 syringe See Rx Instructions .Route Qty: 20 0RF Rx Instructions: As directed morphine 15 mg tablet extended release 15 mg PO Q12H Qty: 14 0RF Rx Instructions: Partial Fill upon patient request. torsemide 20 mg tablet 40 mg PO DAILY Qty: 30 0RF Trulicity 0.75 mg/0.5 mL pen injector 0.75 mg subcut QWEEK Qty: 1 0RF Print Language: Chinese
[2024-01-15] MEDS: Morphine Sulfate ER 15 MG TABLET.ER PO (01:15)
[2024-01-15 01:16] VITALS: BP 118/61; PULSE 70; RESP 16; TEMP 36.9
== END 2024-01-15 01:19 | disposition home or self-care (01) ==
PROVIDERS: Emergency Provider Emergency Medicine
DX: G89.29 Other chronic pain (principal); Z76.0 Encounter for issue of repeat prescription; Z79.899 Other long term (current) drug therapy
CPT/HCPCS: 99283

== ENCOUNTER 2024-01-15 20:46 | Emergency (ER) | payer OTHER, SELFPAY ==
--- NOTE | ~2024-01-15 | XR_ITS ---
EXAMINATION: XR CHEST CLINICAL INFORMATION: Overdose. COMPARISON: None available. TECHNIQUE: Frontal view of the chest was obtained. FINDINGS: No significant abnormality is noted involving the heart, lungs, mediastinum, bony thorax or soft tissues. XR/XR chest 1V IMPRESSION: Unremarkable examination.
--- NOTE | ~2024-01-15 | CT_ITS ---
EXAMINATION: CT CHEST WITHOUT CONTRAST CLINICAL INFORMATION: Hypoxia. Overdose. COMPARISON: None available. TECHNIQUE: Multidetector volumetric CT imaging of the chest was done. Axial MIP volume rendering provided. Sagittal and coronal reformatted images were obtained. This CT examination was performed using dose optimization techniques as appropriate, variously including the following: *Automated exposure control *Adjustment of mA and/or kV according to patient size (this includes techniques or standardized protocols for targeted exams where dose is matched to indication/reason for exam; i.e. extremities or head) *Use of iterative reconstruction technique DLP: 399 mGy-cm FINDINGS: LUNGS: The lungs are clear with no evidence of inflammation or nodules. MEDIASTINUM: The mediastinum is normal. CORONARY ARTERY CALCIFICATION: Dense coronary artery calcifications. PLEURA: There is no pleural effusion. No pleural mass or thickening. AXILLA: No lymphadenopathy. UPPER ABDOMEN: Unremarkable. OSSEOUS STRUCTURES: Unremarkable. CT/CT chest wo IV con IMPRESSION: 1. No acute abnormality of the chest. Fleischner guidelines were followed.
[2024-01-15 20:53] VITALS: BP 150/94; BP 162/88; PULSE 100; PULSE 95; RESP 20; TEMP 37.1; O2SAT 97; O2SAT 98; BMI 32.9
--- NOTE | 2024-01-15 21:11 | MHC.EDTECH ---
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
--- NOTE | 2024-01-15 21:14 | ED.OVERDOSE ---
HPI - Overdose General Chief Complaint: Overdose Stated Complaint: OD, 2 ROUNDS NARCAN GIVEN, VOMITING Time Seen by Provider: 01/15/24 20:59 Source: patient Mode of arrival: EMS Limitations: no limitations History of Present Illness HPI Narrative: 63 yo male with PMH of HLD, chronic pain, anemia, CKD stage 4, diabetes that I just saw last night and gave him his chronic morphine ER refill that he states he did not fill but was drinking ETOH and smoking THC with a friend and this friend somehow called an ambulance because of overdose and patient needed two doses of 4mg IN narcan but he cannot tell me how this happened. He now has nausea diarrhea and is in pain. He denies SI. 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) Context: Accidental Overdose: uncertain what happened Associated symptoms: nausea/vomiting and other (diarrhea, body pain) Treatments Prior to Arrival: narcan (4mg IN narcan x 2) Related Data Previous Rx's ?Medication ?Instructions ?Recorded insulin syringe-needle U-100 1 mL #20 ea 12/21/23 28 gauge x 1/2 (BD Insulin Syringe) morphine 10 mg/5 mL oral solution 20 mg (10 mL) PO BID 7 days #140 mL 12/21/23 dulaglutide 0.75 mg/0.5 mL 0.75 mg (0.5 mL) subcut QWEEK #1 mL 01/08/24 subcutaneous pen injector (Trulicity) torsemide 20 mg tablet 40 mg (2 x 20 mg) PO DAILY #30 tabs 01/08/24 atorvastatin 40 mg tablet 40 mg PO DAILY #30 tabs 01/15/24 trazodone 50 mg tablet 50 mg PO BEDTIME #7 tabs 01/15/24 Allergies Allergy/AdvReac Type Severity Reaction Status Date / Time acetaminophen [From Tylenol] AdvReac Mild Gastrointestinal Verified 01/15/24 20:59 Upset Review of Systems Review of Systems: Constitutional : No Fever, No Chills, No Fatigue ENT/Mouth : No sore throat, No Rhinorrhea Eyes: No Eye Pain, No Swelling, No Redness Cardiovascular : No Chest Pain, No SOB, No Dyspnea on Exertion Respiratory : No Cough, No Sputum Gastrointestinal : pos Nausea, No Vomiting, pos Diarrhea, No abdominal Pain Genitourinary : No Dysuria, No Urinary Frequency, No Hematuria, Musculoskeletal : No joint pain, pos Myalgias, No Joint Swelling Skin : No Skin Lesions, No rash Neuro : No Weakness, No Numbness, No Dizziness, no Headache Psych : No Anxiety/Panic, No Depression Heme/Lymph: No Bruising, No Bleeding,No Lymphadenopathy Endocrine : No Polyuria, No Polydipsia All other systems reviewed and are negative [facility] Past Medical History Attestation statement: The following information was validated with the patient. Source: old records reviewed Medical History (Updated 01/16/24 @ 00:03 by Velia Jin DO) Anemia CKD stage 4 due to type 2 diabetes mellitus Diabetes Chronic pain Social History Social History (Updated 01/15/24 @ 21:23 by Velia Jin DO) Alcohol intake: current Alcohol intake frequency: does not drink Patient Tobacco Use Status: Tobacco use Unknown Substance Use Type: Marijuana Advance Directives: No Advance Directives Information Provided: No Physical Exam Vital Signs: Vital Signs: Last Vital Signs Temp 98.7 F 01/15/24 22:08 Pulse 74 01/15/24 22:08 Resp 16 01/15/24 22:08 BP 149/81 H 01/15/24 22:08 Pulse Ox 96 01/15/24 23:11 O2 Del Method Nasal Cannula 01/15/24 23:11 O2 Flow Rate 2 01/15/24 23:11 BMI result Body Mass Index 32.9 Appearance: Alert. Oriented X3. anxious in withdrawal mild acute distress. Eyes: Pupils equal, round and reactive to light. ENT: Pharynx normal. Neck: Normal inspection. Neck supple. CVS: Normal heart rate and rhythm. Pulses normal. Respiratory: No respiratory distress. Breath sounds normal. Abdomen: Soft and nontender. Skin: Skin warm and dry. Normal skin color. Normal skin turgor. piloerection Extremities: No lower extremity edema. No calf ttp Neuro: Oriented X 3. No motor deficit. No sensory deficit. Course Course Course Narrative: now reports SI and states this was SI attempt and overdose he is also newly hypoxic down to 70s 98% on 2L will need to medically clear before we can refer to CARE team Reevaluation(s) Reevaluation #1: Cr 2.55 but patient states he has stage 4 CKD so his creatinine clearance would be accurate Reevaluation #2: I see no aspiration on CT scan at this time will monitor suspect his hypoxia is due to hypoventilation from overdose as well as he is supposed to use CPAP will observe until more awake and he is stable on O2 if not improved overnight after observation can be admitted in the AM physician observation started 12am. Medical Decision Making Medical Decision Making [facility] Narrative: 63 yo male with PMH of HLD, chronic pain, anemia, CKD stage 4, diabetes who somehow overdosed requiring 2 doses of IN narcan but cannot tell me how it happened no signs of head trauma he is GCS 15 I did call and cancel his morphine ER rx that he did not fill from me last night as he is not being truthful and I do not feel comfortable prescribing to him at this point. He will be monitored and given the chance to go to detox and will be ordered narcan to take home. Differential Diagnosis Differential Diagnoses: The differential diagnosis associated with the presentation includes opiate use disorder, opiate overdose, polysubstance abuse Admission/Observation Consideration of admission/observation: Escalation of care including admission/observation considered cannot get off of O2 Lab Data [facility] Lab Attestation statement: I reviewed the patient's lab results. 01/15/24 22:13 01/15/24 22:13 Labs: Lab Results 01/15/24 Range/Units 22:13 WBC 6.4 (4.8-10.8) X10*3/uL RBC 2.97 L (4.60-5.80) X10*6/uL Hgb 9.1 L (14.0-18.0) g/dl Hct 27.5 L (42.0-52.0) % MCV 92.6 (80.0-98.0) fL MCH 30.6 (27.0-33.0) pg MCHC 33.1 (31.0-36.0) g/dl RDW 12.1 (11.0-16.0) % Plt Count 120 L (160-400) X10*3/uL MPV 11.6 (9.4-12.4) fL Immature Gran % (Auto) 0.3 (0.0-0.4) % Neut % (Auto) 86.5 H (45-73) % Lymph % (Auto) 6.3 L (20-40) % [place] % (Auto) 6.1 (2-11) % Eos % (Auto) 0.3 (0-4) % Baso % (Auto) 0.5 (0-2) % Lymph # (Auto) 0.4 L (1.2-4.9) X10*3/uL [place] # (Auto) 0.4 (0.1-1.2) X10*3/uL Eos # (Auto) 0.0 (0.0-0.4) X10*3/uL Baso # (Auto) 0.0 (0.0-0.2) X10*3/uL Abs Immat Gran (auto) 0.02 (0.00-0.03) X10*3/uL Absolute Neuts (auto) 5.5 (2.0-8.3) x10*3/uL Absolute Nucleated RBC 0.000 (0.0-0.012) X10*3/uL Nucleated RBC % (auto) 0.0 (0.0-0.2) /100WBC Sodium 145 (135-145) mmol/L Potassium 4.8 (3.3-5.1) mmol/L Chloride 104 (96-108) mmol/L Carbon Dioxide 31 H (22-29) mmol/L Anion Gap 15 (12-20) BUN 40 H (9-16) mg/dL Creatinine 2.55 H (0.5-1.4) mg/dL Estim Creat Clear Calc 32.4 Estimated GFR 26 Random Glucose 143 H (60-115) mg/dL Calcium 9.3 (8.4-10.2) mg/dL Magnesium 2.3 (1.6-2.6) mg/dL Total Bilirubin 0.2 (0.0-1.0) mg/dL Direct Bilirubin < 0.2 (0.0-0.5) mg/dL AST 17 (5-37) U/L ALT 17 (0-40) U/L Alkaline Phosphatase 77 (39-117) U/L Total Creatine Kinase 76 (38-174) U/L B-Natriuretic Peptide 82 (<100) pg/mL Total Protein 7.0 (6.5-8.0) g/dL Albumin 3.8 (3.5-5.0) g/dL Independent Interpretation I performed an independent interpretation of an: EKG, Plain X-Ray (normal ) and CT Scan (no aspiration) Interpretation: Rate: 74 Rhythm: NSR [place]: left Normal P waves. Normal DANIELLE. Normal QRS complex. ST T wave : no LILIANA, nonspecific ST T wave abnormalities inf leads qTC: 481 prior studies: no sig ischemia The study has been interpreted contemporaneously by me. . Radiology Impression Discussion of test interpretation with radiology: I have reviewed the radiologist's reading. Independent Historian Clinical information obtained from an independent historian. History obtained from or confirmed by: EMS External Record Review External record reviewed: Inpatient record Discharge Plan Discharge Clinical Impression: Drug overdose, Hypoxia, Suicide attempt Patient Disposition: Still a Patient Instructions: Adult Overdose (ED) Prescriptions: Discontinued morphine 15 mg tablet 15 mg PO BID PRN (Reason: pain) 5 Days Qty: 10 0RF Rx Instructions: Partial Fill upon patient request. morphine 15 mg tablet extended release 15 mg PO Q12H Qty: 10 0RF Rx Instructions: Partial Fill upon patient request. morphine 15 mg tablet extended release 15 mg PO Q12H 5 Days Qty: 10 0RF Rx Instructions: Partial Fill upon patient request. morphine 15 mg tablet extended release 15 mg PO Q12H Qty: 14 0RF Rx Instructions: Partial Fill upon patient request. morphine 15 mg tablet extended release 15 mg PO Q12H Qty: 10 0RF Rx Instructions: Partial Fill upon patient request. No Action morphine 10 mg/5 mL solution 20 mg PO BID 7 Days Qty: 140 0RF Rx Instructions: Partial Fill upon patient request. (DME) insulin syringe-needle U-100 [BD Insulin Syringe] 1 mL 28 gauge x 1/2 syringe See Rx Instructions .Route Qty: 20 0RF Rx Instructions: As directed torsemide 20 mg tablet 40 mg PO DAILY Qty: 30 0RF Trulicity 0.75 mg/0.5 mL pen injector 0.75 mg subcut QWEEK Qty: 1 0RF trazodone 50 mg tablet 50 mg PO BEDTIME Qty: 7 0RF atorvastatin 40 mg tablet 40 mg PO DAILY Qty: 30 0RF Print Language: Tajik
--- NOTE | 2024-01-15 21:31 | ECG_ITS ---
Test Reason : overdosed Blood Pressure : / mmHG Vent. Rate : 086 BPM Atrial Rate : 086 BPM P-R Int : 156 ms QRS Dur : 082 ms QT Int : 392 ms P-R-T Axes : 000 164 186 degrees QTc Int : 469 ms Suspect limb leads reversal Normal sinus rhythm Right axis deviation Nonspecific T wave changes Abnormal ECG No previous ECGs available Referred By: Velia Jin Electronically Signed By:Bong Pineda
--- NOTE | 2024-01-15 22:06 | PC.NURSE ---
Addendum entered by Dot Stahl 01/16/24 06:31: Provider Dr. Yuan made aware, Pt made 1:1 for safety. 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 Pt reports intent to end life by overdosing on smoking unknown substance.
[2024-01-15 22:08] VITALS: BP 149/81; PULSE 74; RESP 16; TEMP 37.1; O2SAT 96
--- NOTE | 2024-01-15 22:18 | MHC.EDTECH ---
2200 ,vitals taken ,blood drawn and sent to lab ,ekg taken and was read by Provider .
[2024-01-15 22:26] LABS: Basophils Percent Auto 0.5 % (0-2); Eosinophils Percent Auto 0.3 % (0-4); Mean Corpuscular Volume 92.6 fL (80.0-98.0); PLT CLUMP 1; Red Cell Distribution Width 12.1 % (11.0-16.0); SCAN SMEAR FLAG 1
[2024-01-15 22:27] LABS: Hematocrit 27.5 % (42.0-52.0); Hemoglobin 9.1 g/dl (14.0-18.0); Imm Gran Abs Auto 0.02 X10*3/uL (0.00-0.03); Imm Gran Pct Auto 0.3 % (0.0-0.4); Lymphocytes Absolute Auto 0.4 X10*3/uL (1.2-4.9); Lymphocytes Percent Auto 6.3 % (20-40); Mean Corpuscular HGB Conc 33.1 g/dl (31.0-36.0); Mean Corpuscular Hemoglobin 30.6 pg (27.0-33.0); Mean Platelet Volume 11.6 fL (9.4-12.4); Monocytes Absolute Auto 0.4 X10*3/uL (0.1-1.2); Monocytes Percent Auto 6.1 % (2-11); Neutrophils Absolute Auto 5.5 x10*3/uL (2.0-8.3); Neutrophils Percent Auto 86.5 % (45-73); Red Blood Count 2.97 X10*6/uL (4.60-5.80)
[2024-01-15 22:31] LABS: Anion Gap 15 (12-20); Blood Urea Nitrogen 40 mg/dL (9-16); Calcium 9.3 mg/dL (8.4-10.2); Carbon Dioxide 31 mmol/L (22-29); Chloride 104 mmol/L (96-108); Creatinine Clr Calc Pharmacy 32.4; Estimated Glomerular Filt Rate 26; Glucose Random 143 mg/dL (60-115); Potassium 4.8 mmol/L (3.3-5.1); Sodium 145 mmol/L (135-145)
[2024-01-15 22:48] LABS: Alanine Aminotransferase 17 U/L (0-40); Albumin Level 3.8 g/dL (3.5-5.0); Alkaline Phosphatase 77 U/L (39-117); Aspartate Amino Transferase 17 U/L (5-37); Bilirubin Direct < 0.2 mg/dL (0.0-0.5); Bilirubin Total 0.2 mg/dL (0.0-1.0); MANUAL DIFF FLAG NO; Magnesium 2.3 mg/dL (1.6-2.6); Platelet Count 120 X10*3/uL (160-400); White Blood Count 6.4 X10*3/uL (4.8-10.8)
[2024-01-15 23:10] VITALS: O2SAT 88
[2024-01-15 23:11] VITALS: O2SAT 96
--- NOTE | 2024-01-15 23:11 | PC.NURSE ---
Pt destat to 88% on RA, provider Dr. Yuan made aware, placed on 2L via NC with improvement to 96%.
[2024-01-15 23:56] LABS: B Type Natriuretic Peptide 82 pg/mL (<100)
[2024-01-16] VITALS (8 sets, daily range): BP systolic 104–173; BP diastolic 58–80; PULSE 59–68; RESP 16–18; TEMP 36.3–37.2; O2SAT 93–99
--- NOTE | 2024-01-16 00:15 | MHC.EDTECH ---
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
[2024-01-16 00:45] LABS: Troponin-I High Sensitivity 10.7 ng/L (<3.5-35.0)
--- NOTE | 2024-01-16 01:34 | MHC.EDTECH ---
PATIENT AWAKE USE URINAL ,ATE 2 SANDWICH AND DRANK 3 JUICES FOR SNACK.
--- NOTE | 2024-01-16 02:19 | MHC.EDTECH ---
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
[2024-01-16 02:30] LABS: Amphetamine Screen Urine Not Detected (Not Detect); Barbiturates, Urine Not Detected (Not Detect); Benzodiazepines Screen Urine Not Detected (Not Detect); Cannabinoid Screen Urine POSITIVE (Not Detect); Cocaine Screen Urine Not Detected (Not Detect); Fentanyl, urine POSITIVE (Not Detect); Opiate Screen Urine POSITIVE (Not Detect); Phencyclidine Screen Urine Not Detected (Not Detect)
--- NOTE | 2024-01-16 06:30 | PC.NURSE ---
O2 taken off, SpO2 maintained between 94-99% on RA.
[2024-01-16 13:45] LABS: Glucose, Whole Blood 177 mg/dL (60-115)
--- NOTE | 2024-01-16 14:41 | PC.NURSE ---
Patient was assessed by care team awaiting dispo.
[2024-01-16 14:44] LABS: Anion Gap 14 (12-20); Blood Urea Nitrogen 36 mg/dL (9-16); Calcium 9.3 mg/dL (8.4-10.2); Carbon Dioxide 31 mmol/L (22-29); Chloride 102 mmol/L (96-108); Creatinine Clr Calc Pharmacy 38.6; Estimated Glomerular Filt Rate 32; Glucose Random 234 mg/dL (60-115); Potassium 4.9 mmol/L (3.3-5.1); Sodium 142 mmol/L (135-145)
--- NOTE | 2024-02-10 14:51 | HO.SUDE ---
Please see CARE Team assessment.
== END 2024-01-16 15:15 | disposition home or self-care (01) ==
PROVIDERS: Emergency Medicine; Student in an Organized Health Care Education/Training Program; Emergency Provider Emergency Medicine; PCP Internal Medicine
DX: T65.92XA Toxic effect of unspecified substance, intentional self-harm, initial encounter (principal); R09.02 Hypoxemia; Y92.9 Unspecified place or not applicable; E11.22 Type 2 diabetes mellitus with diabetic chronic kidney disease; N18.4 Chronic kidney disease, stage 4 (severe)
CPT/HCPCS: 36415; 71045; 71250; 80048; 80076; 80307; 82550; 82947; 83735; 83880; 84484; 85025; 93005; 99285; S9485

== ENCOUNTER → 2024-01-15 21:31 | Outpatient (BNV) | payer OTHER, SELFPAY | PROVIDERS: Emergency Provider Emergency Medicine; PCP Internal Medicine; Visit Provider Internal Medicine Cardiovascular Disease | DX: R94.31 Abnormal electrocardiogram [ECG] [EKG] (principal) | CPT/HCPCS: 93010 ==

== ENCOUNTER 2024-02-08 14:45 | Outpatient (AMB) | payer OTHER, SELFPAY ==
--- NOTE | 2024-02-08 14:49 | MHC.PC.OV ---
Vital Signs 02/08/24 14:52 Height 5 ft 5 in Weight 210 lb 2 oz BMI 35.0 BP 130/78 Blood Pressure Location Lt brachial Position Sitting Pulse 71 Pulse Source Pulse Oximeter Pulse Oximetry (%) 94 Oxygen Delivery Method Room Air Intake Visit Reasons: establish care Intake Note: Patient is a new patient here to establish care for HTN, Diabetes, CKD stage 3-4, Arthritis in both knees, Chronic pain, Depression, Anxiety, PTSD, AOCD with normal iron levels, History of Cardiorenal syndrome. Transferring care from unknown. Medical records have been requested and have not received. 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: Not Required per policy Accompanied by: Self / Same As Patient Allergies acetaminophen [From Tylenol] Adverse Reaction (Mild, Verified 02/09/24 06:06) Gastrointestinal Upset Medication List - Last Reconciled 02/09/24 by Toni Womack MD atorvastatin 40 mg PO DAILY carvedilol 25 mg PO BID dulaglutide (Trulicity) 0.75 mg (0.5 mL) subcut QWEEK fluoxetine 60 mg PO QAM hydralazine 75 mg (3 x 25 mg) PO TID insulin glargine (Lantus U-100 Insulin) 12 units subcut QAM insulin syringe-needle U-100 (BD Insulin Syringe) As directed isosorbide dinitrate 30 mg PO TID levetiracetam 500 mg PO BID morphine 20 mg (10 mL) PO BID 7 days polyethylene glycol 3350 17 grams PO DAILY psyllium husk (aspartame) 3.4 gram 1 packet PO DAILY tamsulosin 0.8 mg (2 x 0.4 mg) PO BEDTIME torsemide 40 mg (2 x 20 mg) PO DAILY trazodone 50 mg PO BEDTIME trazodone 150 - 300 mg PO BEDTIME PRN Tobacco use date assessed: 02/08/24 Dental Screening Dental Screen Date: 02/08/24 Did you have a dental visit in the last 12 months?: Yes Did you have a dental problem in the last 6 months where you did not have access to dental care?: No Was dental information given to patient?: Patient has dentist HPI establish care HPI Details 63 yr old male presents to the office to establish his care here. He has been incarcerated for over 15 years and was released last month. Pt was on regular Morphine for pain control while at the skilled nursing. He has chronic pain syndrome, with excruciating pain in the neck and lower back. Patient reports he has been on morphine for the past four years. Now is requesting that this prescription be continued. Patient has prior history of substance use and was on methadone. Since release from the skilled nursing, patient has visited two ER's for temporary fill on the morphine. [facility]LY [facility], [facility] Medical History Anemia CKD stage 4 due to type 2 diabetes mellitus Diabetes Chronic pain Surgical History History of dental surgery History of rectal surgery Social History Housing: Other (program home) Alcohol intake: current Alcohol intake frequency: does not drink Patient Tobacco Use Status: Current everyday Tobacco user Tobacco use type: Cigarette Cigarette Packs Per Day: 0.25 Cigarettes Per Day: 3 e-Cigarette/Vaping Use: Never Used Second Hand Smoke Exposure: Yes Substance Use Type: Marijuana service: No Current occupational status: disabled Cognitive needs: Yes (walker) Hearing needs: Yes (hearing aides) Vision needs: Yes (Glasses) Questionnaire PHQ-9 Over the last 2 weeks, how often have you been bothered by any of the following problems? 1. Little interest or pleasure in doing things: several days 2. Feeling down, depressed, or hopeless: several days 3. Trouble falling or staying asleep, or sleeping too much: not at all 4. Feeling tired or having little energy: several days 5. Poor appetite or overeating: several days 6. Feeling bad about yourself - or that you are a failure or have let yourself or your family down: several days 7. Trouble concentrating on things, such as reading the newspaper or watching television: nearly every day 8. Moving or speaking so slowly that other people could have noticed. Or the opposite - being so fidgety or restless that you have been moving around a lot more than usual: several days 9. Thoughts that you would be better off or of hurting yourself in some way: several days Total score: 10 Depression Screening Interpretation: Positive Depression Screening Done: Yes Source: Developed by Drs. Arthur Laguerre, Elvis Huertas and colleagues, with an educational анна from [employer]. Thrive Questionnaire Date Thrive assessed: 02/08/24 I am a: Patient What is your living situation today?: I do not have a steady places to live Within the past 12 months, did the food you bought not last and you didn't have the money to get more?: Sometimes True Within the past 12 months, did you worry whether your food would run out before you got money to buy more?: Sometimes True Do you have trouble paying for medicines?: Yes Do you have trouble getting transportation to medical appointments?: Yes Do you have trouble paying your heating and electricity bill?: No Do you have trouble taking care of your child, family member or friend?: No Do you have trouble with day-to-day activities such as bathing, preparing meals, shopping, managing finances, etc.?: Yes (sometimes) Are you currently unemployed and looking for a job?: No Are you interested in more education?: No Currently or been in a relationship where the following occur: no concerns reported THRIVE Score: 4 AUDIT C Alcohol Use Questionnaire (AUDIT-C) 1. How often do you have a drink containing alcohol?: Never Total Score: 0 GAYATHRI-7 AMB Questionnaire GAYATHRI-7 Date GAYATHRI - 7 assessed: 02/08/24 Feeling nervous, anxious, or on edge: 3 = Nearly every day Not being able to stop or control worryin = Not at all Worrying too much about different things: 0 = Not at all Trouble relaxin = Not at all Being so restless that it is hard to sit still: 2 = More than half the days Becoming easily annoyed or irritable: 0 = Not at all Feeling afraid as if something awful might happen: 0 = Not at all Total GAYATHRI-7 score (0-4 normal; 5-9 mild; 10-14 moderate; 15-21 severe): 5 Source: Developed by Drs. Arthur Laguerre, Elvis Huertas and colleagues, with an educational анна from [employer]. Physical exam (Primary Care) Vital Signs: Last Vital Signs Pulse 71 02/08/24 14:52 BP 130/78 02/08/24 14:52 Pulse Ox 94 02/08/24 14:52 Oxygen Delivery Method Room Air 02/08/24 14:52 BMI result Body Mass Index 35.0 Tobacco/Smoking Status: Tobacco use Status Tobacco use date assessed 02/08/24 02/08/24 15:00 Patient Tobacco Use Status Current everyday Tobacco 02/08/24 15:10 Tobacco use type Cigarette 02/08/24 15:10 e-Cigarette/Vaping Use Never Used 02/08/24 15:00 PHQ-9: PHQ-9 Score PHQ-9: Total score 10 02/08/24 16:52 Depression Screening Interpretation: Positive Thrive Assessment: Date of Thrive Assessment Date Thrive assessed 02/08/24 02/08/24 15:00 Currently or been in a relationship where the following occur: no concerns reported Const General: cooperative and healthy appearing Nutritional Appearance: well nourished Orientation/consciousness: patient oriented x3 Limitations: no limitations HENMT Head: Yes normal to inspection Eyes General: appearance normal, both eyes and all related structures Neck Neck: Yes normal visual inspection Chest Chest palpation & inspection: normal palpation of entire chest wall Resp Effort & Inspection: normal respiratory effort Neuro General: patient oriented x3 Assessment and Plan Assessment & Plan (1) Morphine use disorder, moderate, dependence: Code(s): F11.20 - Opioid dependence, uncomplicated Plan: ER records reviewed. Urine detox positive for fentanyl. This indicates patient has been using street drugs since release from the skilled nursing. Long discussion with the patient. I declined to prescribe morphine on a watermaster basis. He would need to be seen at [facility] and options of suboxone or methadone to be discussed. With street use of drugs, the former (suboxone) use could be problematic. Pt was informed, I would have a conversation with the provider at [facility] and will get back to him. Orders: Referrals Addiction Medicine Referral F11.20 - Opioid dependence, uncomplicated Medications: New hydralazine 75 mg (3 x 25 mg) PO TID 300 tabs 0RF psyllium husk (aspartame) 3.4 gram 1 packet PO DAILY 30 ea 0RF isosorbide dinitrate allow nitrate-free interval of 12-14 hrs per 24-hr period 30 mg PO TID 90 tabs 0RF carvedilol must administer with a meal/food 25 mg PO BID 60 tabs 0RF tamsulosin 0.8 mg (2 x 0.4 mg) PO BEDTIME 60 caps 0RF levetiracetam 500 mg PO BID 60 tabs 0RF polyethylene glycol 3350 17 grams PO DAILY 30 ea 0RF Coding Level of Care Code New Pt Level 4 (49961) Diagnoses Morphine use disorder, moderate, dependence F11.20
[2024-02-08 14:52] VITALS: BP 130/78; PULSE 71; O2SAT 94; BMI 35.0
== END 2024-02-08 15:58 | disposition home or self-care (01) ==
PROVIDERS: PCP Internal Medicine; Visit Provider Internal Medicine
DX: F11.20 Opioid dependence, uncomplicated (principal)
CPT/HCPCS: 99204

== ENCOUNTER 2024-02-14 14:23 | Outpatient (AMB) | payer OTHER, SELFPAY ==
--- NOTE | 2024-02-14 14:24 | A.OFFVISCC_ITS ---
Vital Signs 02/14/24 14:25 BP 108/84 Blood Pressure Location Lt brachial Position Sitting Pulse 89 Pulse Source Pulse Oximeter Pulse Oximetry (%) 97 Oxygen Delivery Method Room Air Intake Visit Reasons: Intake [place] Required: No Allergies acetaminophen [From Tylenol] Adverse Reaction (Mild, Verified 02/09/24 06:06) Gastrointestinal Upset HPI HPI Intake: Details: Patient presents for intake--referred by PCP for long standing opiate prescription, with recent overdose resulting in ED visit, KITTY history obtained by RN --at this time patient reported that he had started Suboxone via [facility] Seen very briefly by this marketing underwriter to confirm this information He reports he started treatment with them last week (02/09 or 02/10) and his dose is 2mg BID He has narcan [facility] Medical History Anemia CKD stage 4 due to type 2 diabetes mellitus Diabetes Chronic pain Surgical History History of dental surgery History of rectal surgery Social History Housing: Other (program home) Alcohol intake: current Alcohol intake frequency: does not drink Patient Tobacco Use Status: Current everyday Tobacco user Tobacco use type: Cigarette Cigarette Packs Per Day: 0.25 Cigarettes Per Day: 3 e-Cigarette/Vaping Use: Never Used Second Hand Smoke Exposure: Yes Substance Use Type: Marijuana service: No Current occupational status: disabled Cognitive needs: Yes (walker) Hearing needs: Yes (hearing aides) Vision needs: Yes (Glasses) Review of Systems Const Reports no additional complaints Physical Exam Vital Signs: Last Vital Signs Pulse 89 02/14/24 14:25 BP 108/84 02/14/24 14:25 Pulse Ox 97 02/14/24 14:25 Oxygen Delivery Method Room Air 02/14/24 14:25 Const General: cooperative, healthy appearing and well groomed Results AMB 14 Panel Urine Drug Screen Urine Marijuana (THC) Negative Last Edit by Luna Raymundo RN on 02/14/24 15:01 Urine Cocaine Negative Last Edit by Luna Raymundo RN on 02/14/24 15:01 Urine Morphine Negative Last Edit by Luna Raymundo RN on 02/14/24 15:01 Urine Methamphetamine Negative Last Edit by Luna Raymundo RN on 02/14/24 15:01 Urine Amphetamine Negative Last Edit by Luna Raymundo RN on 02/14/24 15:01 Urine Benzodiazepine Negative Last Edit by Luna Raymundo RN on 02/14/24 15 :01 Urine Barbiturates Negative Last Edit by Luna Raymundo RN on 02/14/24 15:0 1 Urine Methadone Negative Last Edit by Luna Raymundo RN on 02/14/24 15:01 Urine Buprenorphine Negative Last Edit by Luna Raymundo RN on 02/14/24 15: 01 Urine Tricyclic Antidepressant Negative Last Edit by Luna Raymundo RN on 02/14/24 15:01 Urine MDMA Negative Last Edit by Luna Raymundo RN on 02/14/24 15:01 Urine Oxycodone Negative Last Edit by Luna Raymundo RN on 02/14/24 15:01 Urine Phencyclidine Negative Last Edit by Luna Raymundo RN on 02/14/24 15: 01 Urine Propoxyphene Negative Last Edit by Luna Raymundo RN on 02/14/24 15:0 1 Results Reviewed Results Reviewed: Laboratory Last Values POC Urine Buprenorphine Negative 02/14/24 14:57 POC Urine Morphine Negative 02/14/24 14:57 POC Urine Oxycodone Negative 02/14/24 14:57 POC Urine Methadone Negative 02/14/24 14:57 POC Urine Propoxyphene Negative 02/14/24 14:57 POC Urine Barbiturates Negative 02/14/24 14:57 POC U Tricyclic Antidpr Negative 02/14/24 14:57 POC Urine PCP Negative 02/14/24 14:57 POC Ur Amphetamines Negative 02/14/24 14:57 POC Ur Methamphetamine Negative 02/14/24 14:57 POC Urine MDMA Negative 02/14/24 14:57 POC Ur Benzodiazepine Negative 02/14/24 14:57 POC Urine Cocaine Negative 02/14/24 14:57 POC Ur Marijuana (THC) Negative 02/14/24 14:57 Assessment & Plan Assessment & Plan (1) Opioid use disorder: Code(s): F11.90 - Opioid use, unspecified, uncomplicated Category: Medical Plan: * already established care with [facility] * no follow up needed with [facility] * patient inquiring about follow up with PCP and labwork--encouraged to follow up with office Orders: Orders AMB 14 Panel Urine Drug Screen Today Z51.81 - Encounter for therapeutic drug level monitoring MAT Intake Nursing Intake Reason for visit: Referral From PCP Dr. Voss Are you currently using?: No When was your last use?: A few weeks ago Fentanyl What is your source of income?: Unemployed Current PCP: Dr. Voss Date of last visit: Last week Substance Abuse History Substance Abuse History (includes route, frequency and quantity): Heroin, Fentanyl, Buprenorphine/naloxone, Methadone, Oxycodone product and Benzodiazepines Age of first use: 22 year old Details: Prior to incarceration was using IV Heroin and others listed above. methadone and suboxone during and after incarceration. Was prescribed morphine while incarcerated. Social History Children: Yes, they live in [place], they are mad at me with my life choices Do you have a support system?: Not currently Current mode of transportation?: [facility] Where are you currently residing?: [facility]f in [place] Drug Use Have you ever shared needles?: Yes Have you ever belonged to a needle exchange program?: No Do you buy needles at a pharmacy?: No Have you ever overdosed?: Yes Number of lifetime overdoses: 2 Have you ever been hospitalized for an overdose?: Yes Was Naloxone administered?: Yes Recovery History Have you had any periods of recovery?: Yes What is your longest time in recovery?: 16 years while incarcerated Have you ever had inpatient treatment for your substance abuse disorder?: No Have you been in an inpatient detoxification program?: No Have you been in an inpatient Rehab/Senior Living house?: No Have you been in an outpatient Methadone Maintenance program?: Yes Have you been in an outpatient Suboxone Maintenance program?: Yes Have you been in an AA/NA support program?: Yes Have you had a Recovery Support Preparation Room Manager?: Yes Have you had Peer Support?: Yes Details: Currently states he is receiving Suboxone, NA and peer support through [facility] and [facility]. Behavioral Health History Do you have a current provider? If so, who?: Yes, he is unsure of the name of the practice but states I see [facility] for therapy diagnosis: Depression History of other addictive behavior: [place] History of self harming thoughts?: Yes History of homicidal or suicidal intentions?: No Medical Conditions Endocarditis?: No Skin Infection: No Seizure related to withdrawal or overdose: No Head or brain injury: No Hepatitis A (if yes, have you been treated?): No Hepatitis B (if yes, have you been treated?): No Hepatitis C (if yes, have you been treated?): Yes HIV (if yes, have you been treated?): Yes TB (if yes, have you been treated?): No Other: No Do you have any chronic pain conditions?: yes, back and legs, hx of osteomyelitis Legal History History of incarceration: Yes Currently on parole or probation: No Court mandated programs: No Pending court cases: No DCF involvement: No
[2024-02-14 14:25] VITALS: BP 108/84; PULSE 89; O2SAT 97
== END 2024-02-14 15:07 | disposition home or self-care (01) ==
PROVIDERS: PCP Internal Medicine; Visit Provider Nurse Practitioner Psychiatric/Mental Health
DX: Z51.81 Encounter for therapeutic drug level monitoring (principal); F11.90 Opioid use, unspecified, uncomplicated
CPT/HCPCS: 99212

== ENCOUNTER → 2024-02-14 14:23 | Outpatient (BNVA) | payer OTHER, SELFPAY | PROVIDERS: PCP Internal Medicine; Visit Provider Nurse Practitioner Psychiatric/Mental Health | DX: F11.20 Opioid dependence, uncomplicated (principal) | CPT/HCPCS: 80305; 99212 ==

== ENCOUNTER 2024-02-16 09:07 | Outpatient (AMB) | payer OTHER, SELFPAY ==
--- NOTE | 2024-02-16 09:18 | A.OFFPC_ITS ---
Vital Signs 02/16/24 09:21 Height 5 ft 5 in Weight 212 lb 8 oz BMI 35.4 BP 130/70 Blood Pressure Location Lt brachial Position Sitting Pulse 80 Pulse Source Pulse Oximeter Pulse Oximetry (%) 96 Oxygen Delivery Method Room Air Intake Visit Reasons: CKD F/U / Referral Intake Note: Patient is here to follow up on CKD and requesting for referral to Nephrology, Ortho, and Arthritis Dr for his knees pains. Certified Low Vision Therapist Required: No Portal Developer: Not Required per policy Accompanied by: Self / Same As Patient Allergies acetaminophen [From Tylenol] Adverse Reaction (Mild, Verified 02/18/24 09:43) Gastrointestinal Upset Medication List - Last Reconciled 02/18/24 by Toni Womack MD atorvastatin 40 mg PO DAILY buprenorphine-naloxone 2-0.5 mg (Suboxone) 2 film sublingual DAILY carvedilol 25 mg PO BID dulaglutide (Trulicity) 0.75 mg (0.5 mL) subcut QWEEK fluoxetine 60 mg PO QAM hydralazine 75 mg (3 x 25 mg) PO TID insulin glargine (Lantus U-100 Insulin) 12 units subcut QAM insulin syringe-needle U-100 (BD Insulin Syringe) As directed isosorbide dinitrate 30 mg PO TID levetiracetam 500 mg PO BID polyethylene glycol 3350 17 grams PO DAILY psyllium husk (aspartame) 3.4 gram 1 packet PO DAILY tamsulosin 0.8 mg (2 x 0.4 mg) PO BEDTIME torsemide 40 mg (2 x 20 mg) PO DAILY 30 days trazodone 50 mg PO BEDTIME trazodone 150 - 300 mg PO BEDTIME PRN Tobacco use date assessed: 02/16/24 Dental Screening Dental Screen Date: 02/08/24 HPI CKD F/U / Referral HPI Details This note was dictated on 02/18/2024. 63-year-old male presents to the office to discuss his chronic medical conditions. Since last office visit, [facility]. He is now on Suboxone. Patient has history of diabetes for the past 20 years and is taking insulin for the past 10 years. He was taking these medications while being incarcerated. Patient takes Trulicity once a week and Lantus 12 units every day. He checks his blood sugars every day. Blood sugar this morning was 139. Patient has a diagnosis of chronic kidney disease and the last creatinine checked was 2.14. He takes trazodone and Prozac for depression. Patient continues to complain of pain in right and left knees. He has been informed of arthritis in the past. [facility] Medical History (Updated 02/18/24 @ 10:02 by Toni Womack MD) Major depression in partial remission Bilateral primary osteoarthritis of knee Diabetes Substance use disorder Anemia CKD stage 4 due to type 2 diabetes mellitus Chronic pain Surgical History History of dental surgery History of rectal surgery Social History Housing: Other (program home) Alcohol intake: current Alcohol intake frequency: does not drink Patient Tobacco Use Status: Current everyday Tobacco user Tobacco use type: Cigarette Cigarette Packs Per Day: 0.25 Cigarettes Per Day: 3 e-Cigarette/Vaping Use: Never Used Second Hand Smoke Exposure: Yes Substance Use Type: Marijuana service: No Current occupational status: disabled Cognitive needs: Yes (walker) Hearing needs: Yes (hearing aides) Vision needs: Yes (Glasses) Questionnaire Thrive Questionnaire Date Thrive assessed: 02/08/24 GAYATHRI-7 AMB Questionnaire GAYATHRI-7 Date GAYATHRI - 7 assessed: 02/08/24 Source: Developed by Drs. Arthur Laguerre, Patrizia Jackson, Elvis Claros and colleagues, with an educational анна from [employer]. Physical exam (Primary Care) Vital Signs: Last Vital Signs Pulse 80 02/16/24 09:21 BP 130/70 02/16/24 09:21 Pulse Ox 96 02/16/24 09:21 Oxygen Delivery Method Room Air 02/16/24 09:21 Care Plan Goal for BP management: Blood pressure is stable. Continue current medications. BMI result Body Mass Index 35.4 BMI Assessment/Plan discussion: High (1 lb per week weight loss suggested.) BMI High, discussed plan: lifestyle, weight reduction, dietary and physical activity Tobacco/Smoking Status: Tobacco use Status Tobacco use date assessed 02/16/24 02/16/24 09:25 Patient Tobacco Use Status Current everyday Tobacco 02/16/24 09:19 Tobacco use type Cigarette 02/16/24 09:19 e-Cigarette/Vaping Use Never Used 02/16/24 09:19 Are you ready to quit: No Thrive Assessment: Date of Thrive Assessment Date Thrive assessed 02/08/24 02/16/24 09:19 Const General: cooperative and healthy appearing Nutritional Appearance: well nourished Orientation/consciousness: patient oriented x3 Limitations: no limitations HENMT Head: Yes normal to inspection Eyes General: appearance normal, both eyes and all related structures Neck Neck: Yes normal visual inspection Chest Chest palpation & inspection: normal palpation of entire chest wall Resp Effort & Inspection: normal respiratory effort Neuro General: patient oriented x3 Results AMB Hemoglobin A1c AMB Hemoglobin A1c 5.9 % Last Edit by JAG Sweet on 02/16/24 10:21 Results Reviewed Results Reviewed: Laboratory Last Values Hgb A1c (Clinic) 5.9 % (4.0-6.0) 02/16/24 10:07 Assessment and Plan Assessment & Plan (1) CKD stage 4 due to type 2 diabetes mellitus: Code(s): E11.22 - Type 2 diabetes mellitus with diabetic chronic kidney disease; N18.4 - Chronic kidney disease, stage 4 (severe) Plan: A nephrology appointment has been requested. (2) Diabetes: Code(s): E11.9 - Type 2 diabetes mellitus without complications Plan: A1c is 5.9. His sugars are well controlled. Continue medications at same dosage.A1c is in range. An ophthalmology appointment will be scheduled for evaluation of diabetic retinopathy. (3) Substance use disorder: Code(s): F19.90 - Other psychoactive substance use, unspecified, uncomplicated Plan: Patient is on Suboxone. He will continue this from [facility]. (4) Bilateral primary osteoarthritis of knee: Code(s): M17.0 - Bilateral primary osteoarthritis of knee Plan: X-rays of the right and left knee has been ordered. An orthopedic appointment will be requested for possible evaluation. (5) Major depression in partial remission: Code(s): F32.4 - Major depressive disorder, single episode, in partial remission Plan: Continue Trazodone and Prozac at the same dosage. Will arrange for a therapist in the future. Orders: Orders AMB Hemoglobin A1c 02/16/24 Z13.9 - Encounter for screening, unspecified XR knee LT 3V Today S83.92XA - Sprain of unspecified site of left knee, initial encounter XR knee RT 3V Today S83.91XA - Sprain of unspecified site of right knee, initial encounter Referrals Ophthalmology Referral E11.9 - Type 2 diabetes mellitus without complications Coding Level of Care Code Est Pt Level 5 (87864) Diagnoses CKD stage 4 due to type 2 diabetes mellitus E11.22; N18.4 Diabetes E11.9 Substance use disorder F19.90 Bilateral primary osteoarthritis of knee M17.0 Major depression in partial remission F32.4
[2024-02-16 09:21] VITALS: BP 130/70; PULSE 80; O2SAT 96; BMI 35.4
== END 2024-02-16 10:25 | disposition home or self-care (01) ==
PROVIDERS: PCP Internal Medicine; Visit Provider Internal Medicine
DX: E11.22 Type 2 diabetes mellitus with diabetic chronic kidney disease (principal); N18.4 Chronic kidney disease, stage 4 (severe); F32.4 Major depressive disorder, single episode, in partial remission; F19.90 Other psychoactive substance use, unspecified, uncomplicated; M17.0 Bilateral primary osteoarthritis of knee
CPT/HCPCS: 83036; 99214

== ENCOUNTER 2024-02-19 09:00 | Outpatient (REF) | payer OTHER, SELFPAY ==
--- NOTE | ~2024-02-19 | XR_ITS ---
EXAMINATION: Bilateral knee series CLINICAL INFORMATION: Right and left knee pain COMPARISON: None. TECHNIQUE: 3 views of each knee FINDINGS: Right knee: Medial compartment severe joint space narrowing with marginal osteophytes and subchondral cystic change. Lateral compartment small marginal osteophytes without joint space narrowing indicative of mild osteoarthritis. Patellofemoral compartment marginal osteophytes joint space narrowing indicative of mild to moderate osteoarthritis. No effusion. Arterial calcification. Left knee: Medial compartment: Severe joint space narrowing with marginal osteophytes and subchondral cystic change. Lateral compartment marginal osteophytes indicative of at least mild to moderate osteoarthritis. Patellofemoral compartment nonuniform up to severe joint space narrowing with marginal osteophytes and subchondral cystic change indicative of moderate osteoarthritis. Small ossification lateral to the patella perhaps related to old trauma or degenerative changes of the lateral retinaculum. Small effusion. Arterial calcification. XR/XR knee LT 3V IMPRESSION: RIGHT KNEE: Advanced tricompartmental osteoarthritis with severe arthrosis of the medial compartment. LEFT KNEE: Tricompartmental osteoarthritis with severe degenerative changes in the medial compartment.
--- NOTE | ~2024-02-19 | XR_ITS ---
EXAMINATION: Bilateral knee series CLINICAL INFORMATION: Right and left knee pain COMPARISON: None. TECHNIQUE: 3 views of each knee FINDINGS: Right knee: Medial compartment severe joint space narrowing with marginal osteophytes and subchondral cystic change. Lateral compartment small marginal osteophytes without joint space narrowing indicative of mild osteoarthritis. Patellofemoral compartment marginal osteophytes joint space narrowing indicative of mild to moderate osteoarthritis. No effusion. Arterial calcification. Left knee: Medial compartment: Severe joint space narrowing with marginal osteophytes and subchondral cystic change. Lateral compartment marginal osteophytes indicative of at least mild to moderate osteoarthritis. Patellofemoral compartment nonuniform up to severe joint space narrowing with marginal osteophytes and subchondral cystic change indicative of moderate osteoarthritis. Small ossification lateral to the patella perhaps related to old trauma or degenerative changes of the lateral retinaculum. Small effusion. Arterial calcification. XR/XR knee RT 3V IMPRESSION: RIGHT KNEE: Advanced tricompartmental osteoarthritis with severe arthrosis of the medial compartment. LEFT KNEE: Tricompartmental osteoarthritis with severe degenerative changes in the medial compartment.
== END 2024-02-19 09:01 | disposition home or self-care (01) ==
LOC: HO.XRAY 09:00
PROVIDERS: PCP Internal Medicine; Visit Provider Internal Medicine
DX: S83.92XA Sprain of unspecified site of left knee, initial encounter (principal); S83.91XA Sprain of unspecified site of right knee, initial encounter
CPT/HCPCS: 73562

== ENCOUNTER 2024-03-03 13:12 | Outpatient (AMB) | payer OTHER, SELFPAY ==
[2024-03-03 13:16] VITALS: BP 140/82; PULSE 83; O2SAT 98
--- NOTE | 2024-03-03 13:16 | MHC.AM.SUB ---
Vital Signs 03/03/24 13:16 BP 140/82 H Blood Pressure Location Rt brachial Position Sitting Pulse 83 Pulse Source Pulse Oximeter Pulse Oximetry (%) 98 Oxygen Delivery Method Room Air Intake Visit Reasons: MAT Visit Allergies acetaminophen [From Tylenol] Adverse Reaction (Mild, Verified 02/18/24 09:43) Gastrointestinal Upset HPI HPI MAT Visit: Details: Patient presents for intake follow up States [facility] [place] [facility] the [facility] month but would like to move his services closer to where he lives ([place]), would like to establish care with [facility] He has been taking 2mg BID but reports he is experiencing leg pain and restless legs Recently released after 17 yrs of incarceration Recently seen by PCP [facility] Medical History (Updated 02/18/24 @ 10:02 by Toni Womack MD) Major depression in partial remission Bilateral primary osteoarthritis of knee Diabetes Substance use disorder Anemia CKD stage 4 due to type 2 diabetes mellitus Chronic pain Surgical History History of dental surgery History of rectal surgery Social History Housing: Other (program home) Alcohol intake: current Alcohol intake frequency: does not drink Patient Tobacco Use Status: Current everyday Tobacco user Tobacco use type: Cigarette Cigarette Packs Per Day: 0.25 Cigarettes Per Day: 3 e-Cigarette/Vaping Use: Never Used Second Hand Smoke Exposure: Yes Substance Use Type: Marijuana service: No Current occupational status: disabled Cognitive needs: Yes (walker) Hearing needs: Yes (hearing aides) Vision needs: Yes (Glasses) Review of Systems Const Reports as per HPI Physical Exam Vital Signs: Last Vital Signs Pulse 83 03/03/24 13:16 BP 140/82 H 03/03/24 13:16 Pulse Ox 98 03/03/24 13:16 Oxygen Delivery Method Room Air 03/03/24 13:16 Const General: cooperative and no acute distress Resp Effort & Inspection: normal respiratory effort Psych Appearance: grossly normal Mental Status: mental status grossly normal Speech and movement: Normal speech and movement present Affect: normal affect Attitude: cooperative Results AMB 14 Panel Urine Drug Screen Urine Marijuana (THC) Negative Last Edit by aZida Benjamin CMA on 03/03/24 13:23 Urine Cocaine Negative Last Edit by Zaida Benjamin CMA on 03/03/24 13:23 Urine Morphine Negative Last Edit by Zaida Benjamin CMA on 03/03/24 13:23 Urine Methamphetamine Negative Last Edit by Zaida Benjamin CMA on 03/03/24 13:23 Urine Amphetamine Negative Last Edit by Zaida Benjamin CMA on 03/03/24 13:23 Urine Benzodiazepine Negative Last Edit by Zaida Benjamin CMA on 03/03/24 13:23 Urine Barbiturates Negative Last Edit by Zaida Benjamin CMA on 03/03/24 13:23 Urine Methadone Negative Last Edit by Zaida Benjamin CMA on 03/03/24 13:23 Urine Buprenorphine Positive Last Edit by Zaida Benjamin CMA on 03/03/24 13:23 Urine Tricyclic Antidepressant Negative Last Edit by Zaida Benjamin CMA on 03/03/24 13:23 Urine MDMA Negative Last Edit by Zaida Benjamin CMA on 03/03/24 13:23 Urine Oxycodone Negative Last Edit by Zaida Benjamin CMA on 03/03/24 13:23 Urine Phencyclidine Negative Last Edit by Zaida Benjamin CMA on 03/03/24 13:23 Urine Propoxyphene Negative Last Edit by Zaida Benjamin CMA on 03/03/24 13:23 Results Reviewed Results Reviewed: Laboratory Last Values POC Urine Buprenorphine Positive 03/03/24 13:22 POC Urine Morphine Negative 03/03/24 13:22 POC Urine Oxycodone Negative 03/03/24 13:22 POC Urine Methadone Negative 03/03/24 13:22 POC Urine Propoxyphene Negative 03/03/24 13:22 POC Urine Barbiturates Negative 03/03/24 13:22 POC U Tricyclic Antidpr Negative 03/03/24 13:22 POC Urine PCP Negative 03/03/24 13:22 POC Ur Amphetamines Negative 03/03/24 13:22 POC Ur Methamphetamine Negative 03/03/24 13:22 POC Urine MDMA Negative 03/03/24 13:22 POC Ur Benzodiazepine Negative 03/03/24 13:22 POC Urine Cocaine Negative 03/03/24 13:22 POC Ur Marijuana (THC) Negative 03/03/24 13:22 Assessment & Plan Assessment & Plan (1) Opioid use disorder: Code(s): F11.90 - Opioid use, unspecified, uncomplicated Category: Medical Plan: -Mass pat reviewed -Increase suboxone dose to 2mg TID to address restless legs -Encouraged him to call [facility] with questions or concerns -Follow up 1 week Orders: Orders AMB 14 Panel Urine Drug Screen 03/03/24 Z51.81 - Encounter for therapeutic drug level monitoring Medications: New buprenorphine-naloxone 2-[address] 1 strip/tab under (each) side of tongue 1 film buccal TID 21 ea 0RF
== END 2024-03-03 13:45 | disposition home or self-care (01) ==
PROVIDERS: PCP Internal Medicine; Visit Provider Nurse Practitioner Family
DX: F11.90 Opioid use, unspecified, uncomplicated (principal)
CPT/HCPCS: 99213

== ENCOUNTER → 2024-03-03 13:12 | Outpatient (BNVA) | payer OTHER, SELFPAY | PROVIDERS: PCP Internal Medicine; Visit Provider Nurse Practitioner Family | DX: Z51.81 Encounter for therapeutic drug level monitoring (principal); F11.20 Opioid dependence, uncomplicated | CPT/HCPCS: 80305; 99212 ==

== ENCOUNTER 2024-03-10 10:58 | Outpatient (AMB) | payer OTHER, SELFPAY ==
--- NOTE | 2024-03-10 10:59 | MHC.AM.SUB ---
Vital Signs 03/10/24 11:02 BP 140/80 H Blood Pressure Location Rt brachial Position Sitting Pulse Oximetry (%) 99 Intake Visit Reasons: MAT Visit Allergies acetaminophen [From Tylenol] Adverse Reaction (Mild, Verified 02/18/24 09:43) Gastrointestinal Upset HPI HPI MAT Visit: Details: Patient presents for MAT appointment States he feels as though the dose is not holding him especially his night time dose Reports he wakes in the middle of the night with cold sweats and arthralgias Denies any side effects, denies constipation Reports because he is in a program, if he misses the time he is supposed to get his midday dose, he will not get it, so he feels a BID med is easier for him HPI Comments Details: Patient presents for MAT visit [facility] Medical History (Updated 02/18/24 @ 10:02 by Toni Womack MD) Major depression in partial remission Bilateral primary osteoarthritis of knee Diabetes Substance use disorder Anemia CKD stage 4 due to type 2 diabetes mellitus Chronic pain Surgical History History of dental surgery History of rectal surgery Social History Housing: Other (program home) Alcohol intake: current Alcohol intake frequency: does not drink Patient Tobacco Use Status: Current everyday Tobacco user Tobacco use type: Cigarette Cigarette Packs Per Day: 0.25 Cigarettes Per Day: 3 e-Cigarette/Vaping Use: Never Used Second Hand Smoke Exposure: Yes Substance Use Type: Marijuana service: No Current occupational status: disabled Cognitive needs: Yes (walker) Hearing needs: Yes (hearing aides) Vision needs: Yes (Glasses) Review of Systems Const Reports as per HPI Physical Exam Vital Signs: Last Vital Signs BP 140/80 H 03/10/24 11:02 Pulse Ox 99 03/10/24 11:02 Const General: cooperative and no acute distress Resp Effort & Inspection: normal respiratory effort and able to speak in complete sentences Psych Appearance: grossly normal Mental Status: mental status grossly normal Speech and movement: Normal speech and movement present Affect: normal affect Attitude: cooperative Thought process: Normal thought process present Assessment & Plan Assessment & Plan (1) Opioid use disorder: Code(s): F11.90 - Opioid use, unspecified, uncomplicated Category: Medical Plan: -Mass pat reviewed -Increase suboxone dose to 4mg BID -Encouraged him to call [facility] with questions or concerns -Follow up 1 week Medications: New buprenorphine-naloxone 4-[address] 1 strip/tab under tongue 1 film buccal BID 14 ea 0RF Discontinued buprenorphine-naloxone 2-[address] 1 strip/tab under (each) side of tongue Discontinued Reason: Doctor's Order 1 film buccal TID 21 ea 0RF
[2024-03-10 11:02] VITALS: BP 140/80; O2SAT 99
== END 2024-03-10 11:20 | disposition home or self-care (01) ==
PROVIDERS: PCP Internal Medicine; Visit Provider Nurse Practitioner Family
DX: F11.90 Opioid use, unspecified, uncomplicated (principal)
CPT/HCPCS: 99213

== ENCOUNTER → 2024-03-10 10:58 | Outpatient (BNVA) | payer OTHER, SELFPAY | PROVIDERS: PCP Internal Medicine; Visit Provider Nurse Practitioner Family | DX: F11.20 Opioid dependence, uncomplicated (principal) | CPT/HCPCS: 99212 ==

== ENCOUNTER 2024-03-15 18:48 | Emergency (ER) | payer OTHER, SELFPAY ==
[2024-03-15 19:26] VITALS: BP 137/78; PULSE 80; RESP 16; TEMP 36.3; O2SAT 94; BMI 34.5
--- NOTE | 2024-03-15 21:33 | ED.OVERDOSE ---
HPI - Overdose General Chief Complaint: Overdose Stated Complaint: Heroine OD, 12mg narcan given Time Seen by Provider: 03/15/24 20:28 Source: patient Mode of arrival: EMS Limitations: no limitations History of Present Illness ED Provider: theo SINGH Narrative: Patient's history of opiate use was sober for 17 years used 1 bag prior to arrival became unresponsive in his car was given 12 mg of Narcan by EMS had nausea vomiting en route, on arrival patient was alert oriented x3 saturating 94% on room air Related Data Home Medications ?Medication ?Instructions ?Recorded ?Confirmed fluoxetine 20 mg capsule 60 mg PO QAM 02/08/24 02/09/24 trazodone 150 mg tablet 150 - 300 mg PO BEDTIME PRN 02/08/24 02/09/24 Previous Rx's ?Medication ?Instructions ?Recorded trazodone 50 mg tablet 50 mg PO BEDTIME #7 tabs 01/15/24 polyethylene glycol 3350 17 gram 17 g PO DAILY #30 ea 02/08/24 oral powder packet psyllium husk (aspartame) 3.4 gram 1 packet PO DAILY #30 ea 02/08/24 oral powder packet dulaglutide 0.75 mg/0.5 mL 0.75 mg (0.5 mL) subcut QWEEK #1 mL 03/07/24 subcutaneous pen injector (Trulicity) hydralazine 25 mg tablet 75 mg (3 x 25 mg) PO TID #300 tabs 03/07/24 insulin syringe-needle U-100 1 mL #20 ea 03/07/24 28 gauge x 1/2 (BD Insulin Syringe) isosorbide dinitrate 30 mg tablet 30 mg PO TID #90 tabs 03/07/24 torsemide 20 mg tablet 40 mg (2 x 20 mg) PO DAILY 30 days 03/07/24 #60 tabs atorvastatin 40 mg tablet 40 mg PO DAILY #30 tabs 03/08/24 carvedilol 25 mg tablet 25 mg PO BID #60 tabs 03/08/24 levetiracetam 500 mg tablet 500 mg PO BID #60 tabs 03/08/24 tamsulosin 0.4 mg capsule 0.8 mg (2 x 0.4 mg) PO BEDTIME #60 03/08/24 caps insulin glargine 100 unit/mL (3 12 unit (0.12 mL) subcut QPM #15 mL 03/09/24 mL) subcutaneous pen (Lantus Solostar U-100 Insulin) buprenorphine 4 mg-naloxone 1 mg 1 film buccal BID #14 ea 03/10/24 sublingual film Allergies Allergy/AdvReac Type Severity Reaction Status Date / Time acetaminophen [From Tylenol] AdvReac Mild Gastrointestinal Verified 03/15/24 19:28 Upset Review of Systems Review of Systems: Yes all other systems are reviewed and are negative PMFSH Past Medical History Medical History Major depression in partial remission Bilateral primary osteoarthritis of knee Diabetes Substance use disorder Anemia CKD stage 4 due to type 2 diabetes mellitus Chronic pain Surgical History History of dental surgery History of rectal surgery Social History Social History Housing: Other (program home) Alcohol intake: current Alcohol intake frequency: does not drink Patient Tobacco Use Status: Current everyday Tobacco user Tobacco use type: Cigarette Cigarette Packs Per Day: 0.25 Cigarettes Per Day: 3 Smoked in Last 30 Days: No e-Cigarette/Vaping Use: Never Used Second Hand Smoke Exposure: Yes Use of substances other than those prescribed or required for medical reasons: Yes Substance Use Type: Heroin Advance Directives: No Advance Directives Information Provided: No Do you have a plan to hurt others: No Plan service: No Current occupational status: disabled Cognitive needs: Yes (walker) Hearing needs: Yes (hearing aides) Vision needs: Yes (Glasses) Physical Exam Vital Signs: Vital Signs: Last Vital Signs Temp 96.8 F 03/15/24 23:36 Pulse 73 03/15/24 23:36 Resp 14 03/15/24 23:36 BP 151/86 H 03/15/24 23:36 Pulse Ox 95 03/15/24 23:36 O2 Del Method Room Air 03/15/24 23:36 BMI result Body Mass Index 34.5 Appearance: Alert. Oriented X3. No acute distress. Eyes: PERRLA, No Nystagmus ENT: Pharynx normal. Oral Mucosa moist Neck: Normal inspection. Neck supple. CVS: Normal heart rate and rhythm. Pulses normal. Respiratory: No respiratory distress. Equal air entry bilateral, no wheezing/rales/rhonchi Abdomen: Soft and nontender. Bowel sounds are present, no mass palpable, no CVA tenderness Skin: Skin warm and dry. Normal skin color. Normal skin turgor. Extremities: No lower extremity edema. No calf tenderness Neuro: Oriented X 3. No motor deficit. No sensory deficit.No cerebellar signs , cranial nerves II-XII intact Medical Decision Making Medical Decision Making MDM Narrative: Patient SP dental opiate overdose back to baseline at this time was sober for 17 years at this time he does not need any help will be discharging patient home Discharge Plan Discharge Clinical Impression: Opiate overdose Patient Disposition: Home, Self-Care Instructions: Opioid Use Disorder (ED) Additional Instructions: Stop using opiates Follow detox Prescriptions: No Action Trulicity 0.75 mg/0.5 mL pen injector 0.75 mg subcut QWEEK Qty: 1 0RF Rx Instructions: Takes on (DME) insulin syringe-needle U-100 [BD Insulin Syringe] 1 mL 28 gauge x 1/2 syringe See Rx Instructions .Route Qty: 20 0RF Rx Instructions: As directed isosorbide dinitrate 30 mg tablet 30 mg PO TID Qty: 90 0RF Rx Instructions: allow nitrate-free interval of 12-14 hrs per 24-hr period torsemide 20 mg tablet 40 mg PO DAILY 30 Days Qty: 60 0RF hydralazine 25 mg tablet 75 mg PO TID Qty: 300 0RF carvedilol 25 mg tablet 25 mg PO BID Qty: 60 0RF Rx Instructions: must administer with a meal/food atorvastatin 40 mg tablet 40 mg PO DAILY Qty: 30 0RF tamsulosin 0.4 mg capsule 0.8 mg PO BEDTIME Qty: 60 0RF levetiracetam 500 mg tablet 500 mg PO BID Qty: 60 0RF insulin glargine [Lantus Solostar U-100 Insulin] 100 unit/mL (3 mL) insulin pen 12 unit subcut QPM Qty: 15 0RF trazodone 50 mg tablet 50 mg PO BEDTIME Qty: 7 0RF trazodone 150 mg tablet 150 - 300 mg PO BEDTIME PRN fluoxetine 20 mg capsule 60 mg PO QAM polyethylene glycol 3350 17 gram powder in packet 17 g PO DAILY Qty: 30 0RF psyllium husk (aspartame) 3.4 gram powder in packet 1 packet PO DAILY Qty: 30 0RF buprenorphine-naloxone 4-1 mg film 1 film buccal BID Qty: 14 0RF Rx Instructions: place 1 strip/tab under tongue Print Language: Swedish
[2024-03-15 23:36] VITALS: BP 151/86; PULSE 73; RESP 14; TEMP 36; O2SAT 95
[2024-03-16 06:31] VITALS: BP 140/73; PULSE 69; RESP 14; TEMP 37; O2SAT 95
[2024-03-16] MEDS: Naloxone HCl Nasal TAKE HOME 4 MG SPRAY 8 MG NOSTRILALT (09:15)
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
[2024-03-16 13:16] VITALS: BP 129/82; PULSE 82; RESP 18; TEMP 36.7; O2SAT 98
[2024-03-16 15:49] VITALS: BP 150/75; PULSE 66; RESP 16; TEMP 36.2; O2SAT 98
[2024-03-16] MEDS: Buprenorphine/Naloxone 4/1 mg FILM 1 FILM SUBLINGUAL (15:57)
[2024-03-16 16:02] VITALS: BP 150/78; PULSE 66; RESP 16; TEMP 36.2; O2SAT 100
== END 2024-03-16 16:03 | disposition home or self-care (01) ==
PROVIDERS: Emergency Provider Internal Medicine
DX: R40.4 Transient alteration of awareness (principal); T40.601A Poisoning by unspecified narcotics, accidental (unintentional), initial encounter; Y92.9 Unspecified place or not applicable
CPT/HCPCS: 99285

== ENCOUNTER 2024-03-24 13:30 | Outpatient (AMB) | payer OTHER, SELFPAY ==
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
== END 2024-03-24 13:57 | disposition home or self-care (01) ==
PROVIDERS: Visit Provider Nurse Practitioner Family
DX: F11.90 Opioid use, unspecified, uncomplicated (principal)
CPT/HCPCS: 99212

== ENCOUNTER → 2024-03-24 13:30 | Outpatient (BNVA) | payer OTHER, SELFPAY | PROVIDERS: Visit Provider Nurse Practitioner Family ==

== ENCOUNTER 2024-03-30 04:26 | Emergency (ER) | payer OTHER, SELFPAY ==
--- NOTE | 2024-03-30 08:01 | PC.NURSE ---
this RN spoke to Clyde from [facility] [employer] and notified him that [place] has been [place] [facility] [place] this time and is no longer considered [facility].
--- NOTE | 2024-03-30 08:52 | PC.NURSE ---
pt being transported to [facility] by transport and tech at this time.
[2024-03-30 09:30] LABS: Glucose, Whole Blood 218 mg/dL (60-115)
== END 2024-03-30 08:52 | disposition expired ==
PROVIDERS: Emergency Provider Emergency Medicine
DX: I46.9 Cardiac arrest, cause unspecified (principal); S80.212A Abrasion, left knee, initial encounter; S80.211A Abrasion, right knee, initial encounter; S30.1XXA Contusion of abdominal wall, initial encounter; X58.XXXA Exposure to other specified factors, initial encounter; E11.22 Type 2 diabetes mellitus with diabetic chronic kidney disease; N18.4 Chronic kidney disease, stage 4 (severe); F11.99 Opioid use, unspecified with unspecified opioid-induced disorder; F19.90 Other psychoactive substance use, unspecified, uncomplicated; F17.210 Nicotine dependence, cigarettes, uncomplicated; Y93.9 Activity, unspecified; Y92.410 Unspecified street and highway as the place of occurrence of the external cause; Y99.9 Unspecified external cause status
CPT/HCPCS: 82947; 96374; 99285; J0171